=== PATIENT | female | born 1975 | race Caucasian/White ===

== ENCOUNTER 2018-10-10 12:30 | Emergency (ER) | payer OTHER ==
[~2018-10-10] VITALS: Ht 160 cm; Wt 96.6 kg
--- OUTSIDE RECORDS SUMMARY | 2018-10-10 13:55 | XMS REPORT | Clinical Summary ---
Author Author [facility] Organization [facility] Address Unknown Phone Unavailable Care Team Providers Care Rn Endocrinology Name Role Phone Christianne De MD PCP Allergies Comments Active Allergy Reactions Severity Noted Date Fexofenadine Rash Low 06/21/2016 Doxycycline 08/24/2015 Penicillins 08/24/2015 Medications End Date Status Medication Sig Dispensed Refills Start Date Active amitriptyline (ELAVIL) 50 75 mg. TAKE 1 1 07/28/201 MG tablet AND 1/2 6 TABLETS BY MOUTH EVERY EVENING Active topiramate (TOPAMAX) 100 07/24 TAKE 1 30 08/12/201 MG tablet TABLET BY 6 MOUTH EVERY DAY Active CYANOCOBALAMIN/COBAMAMIDE Place under 0 (B-12 PLUS SL) the tongue. Active ETODOLAC ORAL Take 100 mg 0 by mouth. Active acetaminophen-codeine Take 1 tablet 0 (TYLENOL WITH CODEINE #3) by mouth 300-30 mg per tablet every 4 (four) hours as needed for moderate pain. Active nabumetone (RELAFEN) 500 SI-2 TABS 120 tablet 0 201 MG tablet PO BID 8 10/11/2017 Discontinued meloxicam (MOBIC) 15 mg Take 1 tablet 30 tablet 1 tablet (15 mg total) 8 by mouth daily. Active Problems Problem Noted Date Biceps tendinitis on right 03/13/2018 Bursitis of right shoulder 03/13/2018 Leukocytosis 08/24/2015 Elevated blood pressure 08/24/2015 Allergic rhinitis 08/24/2015 Neck pain 08/24/2015 Headache 08/24/2015 Groin mass 08/24/2015 Encounters Care Team Description Date Type Specialty Manjit Marlow MD Biceps tendinitis on right (Primary Dx); Bursitis of right shoulder 03/13/2018 Office Visit Orthopedic Surgery Laith Levin MD Pain of left thumb (Primary Dx); Primary osteoarthritis of first carpometacarpal joint of left hand; OA (osteoarthritis) of finger, right 10/11/2017 Office Visit Orthopedic Surgery after 10/09/2017 Family History Medical History Relation Name Comments No Known Problems Father Heart disease Maternal Grandfather Hypertension Maternal Grandmother Cancer Mother Diabetes Mother Heart disease Paternal Grandfather No Known Problems Sister Relation Name Status Comments Father Maternal Grandfather stroke Maternal Grandmother Alive Mother lung cancer Paternal Grandfather Paternal Grandmother Sister Social History Date Tobacco Use Types Packs/Day Years Used Started: 08/24/1989 Current Some Day Smoker Cigarettes 0.25 Smokeless Tobacco: Never Used Tobacco Cessation: Ready to Quit: Yes; Counseling Given: No Alcohol Use Drinks/Week oz/Week Comments Yes 2 Cans of 1.2 beer Sex Assigned at Date Recorded Not on file Industry Job Start Date Occupation Not on file Not on file Not on file Travel End Travel History Travel Start No recent travel history available. Last Filed Vital Signs Time Taken Vital Sign Reading 10/11/2017 3:31 PM CDT Blood Pressure 119/87 10/11/2017 3:31 PM CDT Pulse 94 - Temperature - - Respiratory Rate - - Oxygen Saturation - - Inhaled Oxygen - Concentration 03/13/2018 2:42 PM CDT Weight 90.7 kg (200 lb) 03/13/2018 2:42 PM CDT Height 160 cm (5' 3") 03/13/2018 2:42 PM CDT Body Mass Index 35.43 Plan of Treatment Health Maintenance Due Date Last Done Comments CERVICAL CANCER SCREENING 11/23/2016 11/23/2013 INFLUENZA VACCINE 01/23/2019 Procedures Comments Procedure Name Priority Date/Time Associated Diagnosis XR SHOULDER 2+ VW RIGHT Routine 03/13/2018 Acute pain of right 2:53 PM CDT shoulder MO ARTHROCENTESIS Routine 03/13/2018 Biceps tendinitis on ASPIR&/INJ MAJOR JT/BURSA 2:30 PM CDT right W/US after 10/09/2017 Results * XR Shoulder 2+ Vw Right (03/13/2018 2:53 PM CDT) Narrative Performed At [facility] 3V of the right shoulder were obtained today in clinic and reviewed by me which demonstrate no evidence of fracture, dislocation or significant arthritis. Performing Organization Address City/State/Zipcode Phone Number [facility] [phone] [place] [address] * Large Joint Arthrocentesis (03/13/2018 2:30 PM CDT) Narrative Performed At Manjit Marlow MD 03/14/2018 11:17 AM Large Joint Arthrocentesis Consent given by: patient Site marked: site marked Timeout: Immediately prior to procedure a time out was called to verify the correct patient, procedure, equipment, computer customer support specialist and site/side marked as required Supporting Documentation Indications: pain Procedure Details Preparation: Patient was prepped and draped in the usual sterile fashion Ultrasound guided: yes Platelet Rich Plasma Used: no PRP Used Location: shoulder - R glenohumeral (bicipital tendon sheath) Right side: Right shoulder medications administered: 2 mL bupivacaine 0.25 % (2.5 mg/mL); 12 mg betamethasone acetate & sodium phosphate 6 mg/mL after 10/09/2017 Insurance Payer Benefit Subscriber ID Type Phone Address Plan / Group CIGNA CIGNA OPEN xxxxxxxxx O ACCESS/NET WORK Advance Directives Patient has advance care planning documents on file. For more information, beny steen contact: Reji Frost [address] [place] [address]
[2018-10-10 14:41] VITALS: BP 143/97
== END 2018-10-10 14:30 | disposition home or self-care (01) ==
LOC: ER 12:30
DX: L50.1 Idiopathic urticaria (principal)
CPT/HCPCS: 99282

== ENCOUNTER → 2018-11-14 | Outpatient (CLI) | payer OTHER | LOC: RAD 16:38 | PROVIDERS: ATTEND Internal Medicine | DX: M79.89 Other specified soft tissue disorders (principal) | CPT/HCPCS: 93971 ==

== ENCOUNTER → 2019-02-13 | Day surgery (SDC) | payer OTHER ==
[~2019-02-13] MED LIST: AMITRIPTYLINE H25 MG PO; ETODOLAC200 MG PO; FENTANYL CITRATE/PF 100MCG/2 ML INJ ONE; HYOSCYAMINE 0.125 MG TAB ONE; MIDAZOLAM HCL 2 MG/2 ML VIAL ONE; PLAQUENIL200 MG PO; PROPOFOL IV EMULSION 10 MG/ML 50 ML VIAL ONE; RANITIDINE HCL150 MG PO; TOPAMAX50 MG PO
--- OUTSIDE RECORDS SUMMARY | 2019-02-13 08:40 | XMS REPORT | Clinical Summary ---
Author Author [facility] Organization [facility] Address Unknown Phone Unavailable Care Team Providers Care Cheese Sprayer Name Role Phone Christianne De MD PCP [...] (RELAFEN) 500 SI-2 TABS 120 tablet 0 10/11/201 MG tablet PO BID 8 Active pantoprazole (PROTONIX) Take 40 mg by 0 40 MG EC tablet mouth daily. 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 Office Visit Hematology Deb Keith MA 11/25/2018 Telephone Hematology Yared Dye MD Leukocytosis, unspecified type (Primary Dx) 11/25/2018 Orders Only Hematology Deb Keith MA 11/22/2018 Telephone Hematology Manjit Marlow MD Biceps tendinitis on right (Primary Dx); Bursitis of right shoulder 03/13/2018 Office Visit Orthopedic Surgery after 02/12/2018 Family History Medical History Relation Name Comments [...] Ready to Quit: Yes; Counseling Given: No Drinks/Week oz/Week Comments Alcohol Use 2 Cans of beer 2.0 Yes Sex Assigned at Date Recorded Not on file Industry Job Start Date Occupation Not on file Not on file Not on file Travel End Travel History Travel Start No recent travel history available. Last Filed Vital Signs Reading Time Taken Comments Vital Sign 142/95 11/26/2018 10:07 AM CDT Blood Pressure 100 11/26/2018 10:07 AM CDT Pulse 37.3 C (99.1 F) 11/26/2018 10:07 AM CDT Temperature - - Respiratory Rate - - Oxygen Saturation - - Inhaled Oxygen Concentration 94.3 kg (208 lb) 11/26/2018 10:07 AM CDT Weight 160 cm (5' 3") 11/26/2018 10:07 AM CDT Height 36.85 11/26/2018 10:07 AM CDT Body Mass Index Plan of Treatment Health Maintenance Due Date Last Done Comments CERVICAL CANCER SCREENING 11/23/2016 11/23/2013 INFLUENZA VACCINE 01/23/2019 Procedures Comments Procedure Name Priority Date/Time Associated Diagnosis LDH Routine 11/26/2018 Leukocytosis, unspecified 9:57 AM CDT type FERRITIN LEVEL Routine 11/26/2018 Leukocytosis, unspecified 9:57 AM CDT type HC COMPLETE BLD COUNT Routine 11/26/2018 Leukocytosis, unspecified W/AUTO DIFF 9:57 AM CDT type XR SHOULDER 2+ VW RIGHT Routine 03/13/2018 Acute pain of right 2:53 PM CDT shoulder CO ARTHROCENTESIS Routine 03/13/2018 Biceps tendinitis on ASPIR&/INJ MAJOR JT/BURSA 2:30 PM CDT right W/US after 02/12/2018 Results * CBC with platelet and differential (11/26/2018 9:57 AM CDT) WBC 12.25 (H) 4.50 - 11.00 k/uL [facility] RBC 5.13 4.20 - 5.50 m/uL [facility] HGB 15.3 12.0 - 16.0 g/dL [facility] HCT 44.7 37.0 - 47.0 % [facility] MCV 87.1 82.0 - 100.0 fL [facility] MCH 29.8 27.0 - 34.0 pg [facility] MCHC 34.2 31.0 - 37.0 g/dL [facility] RDW - SD 45.1 37.0 - 55.0 fL [facility] MPV 8.9 8.8 - 13.2 fL [facility] Platelet count 341 150 - 400 k/uL [facility] Neutrophils 71.2 (H) 39.0 - 69.0 % [facility] Lymphocytes 17.3 (L) 25.0 - 45.0 % [facility] Monocytes 9.1 0.0 - 10.0 % [facility] Eosinophils 2.2 0.0 - 5.0 % [facility] Basophils 0.2 0.0 - 1.0 % [facility] Specimen Blood Performing Organization Address City/[facility]/Zipcode Phone Number [facility] DEPARTMENT [address] [address] PATHOLOGY AND GENOMIC MEDICINE [address] * LDH (11/26/2018 9:57 AM CDT) LDH 199 87 - 225 U/L [facility] Specimen Plasma specimen Performing Organization Address City/[facility]/Zipcode Phone Number [facility] DEPART[facility] [address] [address] PATHOLOGY AND GENOMIC MEDICINE [facility] [address] * Ferritin level (11/26/2018 9:57 AM CDT) Ferritin level 55 13 - 150 ng/mL [facility] Specimen Plasma specimen Performing Organization Address City/State/Zipcode Phone Number [facility] DEPARTMENT OF [address] [place] [address] PATHOLOGY AND GENOMIC MEDICINE [address] * XR Shoulder 2+ Vw Right (03/13/2018 2:53 PM CDT) Specimen Narrative Performed At [facility] 3V of the right shoulder were obtained today in clinic and reviewed by me which demonstrate no evidence of fracture, dislocation or significant arthritis. Performing Organization Address [facility] Phone Number [facility] [address] [place] [address] * Large Joint Arthrocentesis (03/13/2018 2:30 PM CDT) Narrative Performed At Manjit Marlow MD 03/14/2018 11:17 AM Large Joint Arthrocentesis Consent given by: patient Site marked: site marked Timeout: Immediately prior to procedure a time out was called to verify the correct patient, procedure, equipment, direct support staff member and site/side marked as required Supporting Documentation Indications: pain Procedure Details Preparation: Patient was prepped and draped in the usual sterile fashion Ultrasound guided: yes Platelet Rich Plasma Used: no PRP Used Location: shoulder - R glenohumeral (bicipital tendon sheath) Right side: Right shoulder medications administered: 2 mL bupivacaine 0.25 % (2.5 mg/mL); 12 mg betamethasone acetate & sodium phosphate 6 mg/mL after 02/12/2018 Insurance Type Payer Benefit Subscriber ID Effective Phone Address Plan / Dates Group O CIGNA CIGNA OPEN xxxxxxxxx 2015-P ACCESS/NET resent WORK Advance Directives For more information, please contact: [phone] Patient Soils Technician Explanation Type Date Recorded Advance Directives, 05/17/2016 3:46 PM Living Will and Medical Power of Rcp Advance Directives, 06/21/2016 7:01 PM Living Will and Medical Power of Rcp
[2019-02-13 10:40] VITALS: BP 152/93
--- NOTE | 2019-02-13 11:09 | Operative Report ---
DATE OF PROCEDURE: 02/13/2019 SURGEON: Jose Luis Sidhu MD PROCEDURES: EGD with biopsies and colonoscopy with polypectomy INDICATIONS FOR EGD: Upper abdominal pain and history of melena. INDICATIONS FOR COLONOSCOPY: Lower abdominal pain, diarrhea, history of bright red blood per rectum. MEDICATIONS: The patient was done under MAC, please see anesthesiologist's note. PROCEDURE IN DETAIL: With the patient in left lateral decubitus position, a flexible fiberoptic Olympus gastroscope was introduced into the esophagus under direct visualization without any difficulty. Some erosions were noted in the distal esophagus. A minute nodule was noted at the GE junction, that was biopsied. The scope was then advanced with ease into the stomach. Mucosa overlying the antrum and the body revealed some patchy intense erythema, [id number] edema, biopsies were obtained; and sent to stain for H. pylori. The pylorus was of normal contour and shape, it was intubated with ease and the scope was advanced all the way to the second portion of the duodenum. Biopsies were obtained from the second portion and duodenal bulb to rule out sprue. The scope was then withdrawn back into the stomach and retroflexed, and mucosa overlying the fundus and cardia appeared to be within normal limits. The scope was then straightened out. The stomach was decompressed. The scope was subsequently withdrawn. The patient tolerated the procedure well. IMPRESSION: 1. Erosions, repeat. 2. Erosive distal esophagitis. 3. Minute nodule, GE junction biopsied. 4. Gastritis, biopsied, biopsies sent to stain for H. pylori. 5. Rule out sprue. PLAN: Follow up histology. Initiate Protonix 40 mg one p.o. q.a.m. a.c. PROCEDURE IN DETAIL: The patient was then turned around after adequate lubrication of the anal canal, a flexible fiberoptic Olympus colonoscope was inserted into the rectum with ease and advanced all the way to the cecum. Mucosa overlying the cecum appeared to be within normal limits. The ileocecal valve was intubated. The scope was advanced into the terminal ileum. Biopsies were obtained. The scope was then withdrawn back into the colon, it was then withdrawn slowly and three polyps were removed per cold snare polypectomy from the ascending colon. Two polyps were snared by hot snare polypectomy from the transverse colon. There were some mild patchy inflammatory changes noted in the left colon and rectum. Multiple random biopsies were obtained. Twelve polyps were removed from the sigmoid colon, 5 per snare electrocautery and 7 by hot biopsy forceps. Five polyps were removed per snare electrocautery from the rectum. The scope was then retroflexed into the distal rectum and small internal hemorrhoids were noted, none of which was actively bleeding. The scope was then straightened out, it was subsequently withdrawn after securing an adequate stool specimen, that was sent for the appropriate stool studies. The patient tolerated the procedure well. IMPRESSION: 1. Ascending colon polyps x3, removed per cold sent snare polypectomy. 2. Transverse colon polyps x2, removed per hot snare polypectomy. 3. Mild patchy left-sided colitis. 4. Sigmoid colon polyps x12, 5 removed per snare electrocautery and 7 per hot biopsy forceps. 5. Rectal polyps x5, removed per snare electrocautery. 6. Internal hemorrhoids, none actively bleeding. PLAN: 1. Follow up histology. 2. Follow up stool studies. 3. Initiate Visbiome one p.o. b.i.d. 4. Bentyl 10 mg one p.o. t.i.d. 5. Check IBD panel, CRP, and sedimentation rate. A total of 22 polyps were removed. 6. The patient will need a followup colonoscopy in 6 months to a year. MD BRIANA Alvares/TAMI /[id number] cc: Corey Paul NP
[2019-02-13 13:13] LABS: C DIFFICILE TOXIN A&B AMP PROB NEGATIVE (NEGATIVE); WBC,FECAL (FECAL LACTOFERRIN) NEGATIVE (NEGATIVE)
== END | disposition home or self-care (01) ==
LOC: OR 08:38
PROVIDERS: ATTEND Internal Medicine Gastroenterology
DX: K29.70 Gastritis, unspecified, without bleeding (principal); D12.2 Benign neoplasm of ascending colon; D12.3 Benign neoplasm of transverse colon; D12.8 Benign neoplasm of rectum; K51.50 Left sided colitis without complications; K59.00 Constipation, unspecified; K22.10 Ulcer of esophagus without bleeding; K22.8 Other specified diseases of esophagus; K64.8 Other hemorrhoids; M54.9 Dorsalgia, unspecified; F17.203 Nicotine dependence unspecified, with withdrawal; G43.909 Migraine, unspecified, not intractable, without status migrainosus; K21.9 Gastro-esophageal reflux disease without esophagitis; Z88.1 Allergy status to other antibiotic agents; Z88.0 Allergy status to penicillin; Z91.048 Other nonmedicinal substance allergy status; Z01.810 Encounter for preprocedural cardiovascular examination
CPT/HCPCS: 36415; 43239; 45380; 45384; 45385; 81025; 83630; 83993; 85651; 86140; 86256; 86671; 87045; 87177; 87328; 87493; 93005; J2250; J2704; J3010; 45378

== ENCOUNTER 2019-03-03 07:47 | Emergency (ER) | payer OTHER ==
[~2019-03-03] VITALS: Ht 160 cm; Wt 95.3 kg
[~2019-03-03 07:47] MED LIST changes: -FENTANYL CITRATE/PF 100MCG/2 ML INJ ONE; -HYOSCYAMINE 0.125 MG TAB ONE; -MIDAZOLAM HCL 2 MG/2 ML VIAL ONE; -PROPOFOL IV EMULSION 10 MG/ML 50 ML VIAL ONE
--- OUTSIDE RECORDS SUMMARY | 2019-03-03 07:49 | XMS REPORT | Clinical Summary ---
Author Author [facility] Organization [facility] Address Unknown Phone Unavailable Care Team Providers Care Chlorinator Operator Name Role Phone Christianne De MD PCP [...] shoulder 03/13/2018 Office Visit Orthopedic Surgery after 03/02/2018 Family History Medical History Relation Name Comments [...] pain of right 2:53 PM CDT shoulder NE ARTHROCENTESIS Routine 03/13/2018 Biceps tendinitis on ASPIR&/INJ MAJOR JT/BURSA 2:30 PM CDT right W/US after 03/02/2018 Results * CBC with platelet and differential (11/26/2018 9:57 AM CDT) WBC 12.25 (H) 4.50 - 11.00 k/uL [facility] RBC 5.13 4.20 - 5.50 m/uL [facility] HGB 15.3 12.0 - 16.0 g/dL [facility] HCT 44.7 37.0 - 47.0 % [facility] MCV 87.1 82.0 - 100.0 fL [facility] MCH 29.8 27.0 - 34.0 pg [facility] MCHC 34.2 31.0 - 37.0 g/dL [facility] RDW - SD 45.1 37.0 - 55.0 fL [facility] MPV 8.9 8.8 - 13.2 fL [facility] Platelet count 341 150 - 400 k/uL [facility] Neutrophils 71.2 (H) 39.0 - 69.0 % [facility] Lymphocytes 17.3 (L) 25.0 - 45.0 % [facility] Monocytes 9.1 0.0 - 10.0 % [facility] Eosinophils 2.2 0.0 - 5.0 % [facility] Basophils 0.2 0.0 - 1.0 % [facility] Specimen Blood Performing Organization Address City/[facility]/Zipcode Phone Number [facility] DEPARTMENT [address] [address] PATHOLOGY AND GENOMIC MEDICINE [address] * LDH (11/26/2018 9:57 AM CDT) LDH 199 87 - 225 U/L [facility] Specimen Plasma specimen Performing Organization Address City/[facility]/Zipcode Phone Number [facility] DEPARTMENT [address] [address] PATHOLOGY AND GENOMIC MEDICINE [facility] [address] * Ferritin level (11/26/2018 9:57 AM CDT) Ferritin level 55 13 - 150 ng/mL [facility] Specimen Plasma specimen Performing Organization Address City/State/Zipcode Phone Number [facility] DEPARTMENT OF [address] [place] [address] PATHOLOGY AND GENOMIC MEDICINE [address] * XR Shoulder 2+ Vw Right (03/13/2018 2:53 PM CDT) Specimen Narrative Performed At [facility] 3V of the right shoulder were obtained today in clinic and reviewed by me which demonstrate no evidence of fracture, dislocation or significant arthritis. Performing Organization Address [facility] Phone Number [facility] [address] [place] [address] * Large Joint Arthrocentesis (03/13/2018 2:30 PM CDT) Narrative Performed At Manjit Marlow MD 03/14/2018 11:17 AM Large Joint Arthrocentesis Consent given by: patient Site marked: site marked Timeout: Immediately prior to procedure a time out was called to verify the correct patient, procedure, equipment, presidential support specialist and site/side marked as required [...] acetate & sodium phosphate 6 mg/mL after 03/02/2018 Insurance Type Payer Benefit Subscriber ID Effective Phone Address Plan / Dates Group O CIGNA CIGNA OPEN xxxxxxxxx 2015-P ACCESS/NET resent WORK Advance Directives For more information, please contact: [phone] Patient Political Consultant Explanation Type Date Recorded Advance Directives, 05/17/2016 3:46 PM Living Will and Medical Power of Dental Assistant Medical Assistant Advance Directives, 06/21/2016 7:01 PM Living Will and Medical Power of Dental Assistant Medical Assistant
[2019-03-03] MEDS ORDERED: KETOROLAC TROMETHAMINE 60 MG/2 ML VIAL IM ONE (09:00)
[2019-03-03] MEDS ORDERED: PROMETHAZINE HCL (IM) 25 MG/ML VIAL IM ONE (09:00)
--- NOTE | 2019-03-03 09:11 | Diagnostic Imaging Report ---
EXAM: CT Abdomen and Pelvis WITHOUT intravenous contrast INDICATION: Left flank pain COMPARISON: None. TECHNIQUE: Abdomen and pelvis were scanned utilizing a multidetector helical scanner from the lung base to the pubic symphysis without administration of IV contrast. Coronal and sagittal reformations were obtained. IV CONTRAST: None ORAL CONTRAST: None COMPLICATIONS: None RADIATION DOSE: Total DLP: 727.8 mGy*cm Dose modulation, iterative reconstruction, and/or weight based adjustment of the mA/kV was utilized to reduce the radiation dose to as low as reasonably achievable. FINDINGS: LOWER THORAX: Normal. HEPATOBILIARY: No focal hepatic lesions. The gallbladder appears unremarkable. SPLEEN: No splenomegaly. PANCREAS: No focal masses or ductal dilatation. ADRENALS: Left adrenal 2.8 cm nodule with macroscopic fat consistent with myelolipoma. KIDNEYS/URETERS: There is a 6 mm left upper pole renal calculus. Mild associated left hydronephrosis. No other renal calculi identified. No solid mass lesions. No right hydronephrosis. PELVIC ORGANS/BLADDER: Phleboliths in the pelvis. PERITONEUM / RETROPERITONEUM: No free air or fluid. LYMPH NODES: No lymphadenopathy. VESSELS: Minimal atherosclerotic calcifications at the aortic bifurcation. GI TRACT: No abnormal bowel wall thickening. No bowel obstruction. Normal appendix. BONES AND SOFT TISSUES: No suspicious lytic or blastic lesions. No acute osseous injury. IMPRESSION: 6 mm left upper pole renal calculus and mild left hydronephrosis. 2.8 cm left adrenal myelolipoma. Signed by: Parminder Padgett MD on 03/03/2019 9:08 AM
[2019-03-03 09:33] VITALS: BP 157/84
== END 2019-03-03 09:40 | disposition home or self-care (01) ==
LOC: FSED 07:47
DX: R10.12 Left upper quadrant pain (principal); R10.32 Left lower quadrant pain; R11.0 Nausea; N20.0 Calculus of kidney
CPT/HCPCS: 74176; 99283; J1885; J2550

== ENCOUNTER 2019-10-29 06:19 | Emergency (ER) | payer OTHER ==
[~2019-10-29] VITALS: Ht 160 cm; Wt 99.8 kg
[~2019-10-29 06:19] MED LIST changes: +DICYCLOMINE HCL10 MG PO; +MIRALAX17 GM PO; +PANTOPRAZOLE SO40 MG PO
[2019-10-29] MEDS ORDERED: KETOROLAC TROMETHAMINE 30 MG/ML VIAL IV STA (06:42)
[2019-10-29] MEDS ORDERED: MORPHINE SULFATE INJ 4 MG/ML INJ 1ML IV ONE (06:45)
--- NOTE | 2019-10-29 07:03 | NUR ---
TO ROOM TO CARLENE DSOUZA
--- NOTE | 2019-10-29 07:08 | NUR ---
PER ER MD BRADSHAW, DO NOT COVID TEST UNTIL AFTER CT DONE AND READ.
[2019-10-29] MEDS ORDERED: TESSALON PERLE100 MG PO (07:36)
[2019-10-29] MEDS ORDERED: AZITHROMYCIN250 MG PO (07:36)
--- NOTE | 2019-10-29 08:09 | NUR ---
COVID SWAB OBTAINED FOLLOWING COLLECTION PROTOCOL. PT DID NOT TOLERATE WELL. EXPLAINED PROCEDURE AND FOLLOW UP INFORMATION. PT STATES "IT BETTER BE NEGATIVE, I HAVE TO GO [employer] MY NEW CAR TODAY."
--- NOTE | 2019-10-29 08:10 | NUR ---
[facility] CALLED FOR TRANSPORT.
--- NOTE | 2019-10-29 08:37 | Diagnostic Imaging Report ---
TECHNIQUE: CT of the chest WITH intravenous contrast (pulmonary embolism protocol). Dose modulation, iterative reconstruction, and/or weight-based adjustment of the mA/kV was utilized to reduce the radiation dose to as low as reasonably achievable. INDICATION: 44-year-old woman with pain and shortness of breath. COMPARISON: Abdomen and pelvis CT 03/13/2019. FINDINGS: LINES/TUBES: None. PULMONARY ARTERIES: Proximal to the bifurcation of the main pulmonary artery, the main pulmonary artery is 2.6 cm in diameter. No filling defects within the pulmonary arteries to suggest pulmonary embolus. LUNGS AND AIRWAYS: Central airways are patent. 3 mm noncalcified nodule in the superior segment of the right lower lobe (axial lung window series image 35). Mild dependent atelectasis in both lower lobes. PLEURA: Trace right pleural effusion. HEART AND MEDIASTINUM: The visualized thyroid gland is normal. No significant mediastinal, hilar, or axillary lymphadenopathy. The heart and pericardium are within normal limits. SOFT TISSUES AND BONES: Unremarkable. UPPER ABDOMEN: No significant change in size of the 2.6 x 2.6 cm benign left adrenal adenoma. Otherwise, unremarkable. IMPRESSION: No pulmonary embolus or other acute abnormalities in the chest. 3 mm pulmonary nodule in the right lower lobe. If patient is at high risk for lung neoplasm, then optional follow-up chest CT may be obtained in 12 months for reassessment. Otherwise, no routine follow-up imaging recommended. Signed by: Chata Melo MD on 10/29/2019 8:33 AM
[2019-10-29] MEDS ORDERED: ULTRAM50 MG PO (08:59)
[2019-10-29] MEDS ORDERED: NAPROSYN500 MG PO (08:59)
[2019-10-29] MEDS ORDERED: SODIUM CHLORIDE 0.9% 50ML 50 ML ONE (11:18)
[2019-10-29] MEDS ORDERED: IOPAMIDOL 370 MG/ML 200 ML INFUS..BTL INJ ONE (11:18)
== END 2019-10-29 09:47 | disposition home or self-care (01) ==
LOC: FSED 06:19
DX: R05 Cough (principal); J20.9 Acute bronchitis, unspecified; F17.210 Nicotine dependence, cigarettes, uncomplicated
CPT/HCPCS: 71260; 80053; 81025; 85025; 87635; 94760; 99284; Q9967

== ENCOUNTER 2020-03-05 19:31 | Inpatient (IN) | payer OTHER ==
[~2020-03-05] VITALS: Ht 160 cm; Wt 100.7 kg
[~2020-03-05 19:31] MED LIST changes: +AZITHROMYCIN250 MG PO; +NAPROSYN500 MG PO; +TESSALON PERLE100 MG PO; +ULTRAM50 MG PO
[2020-03-05] MEDS ORDERED: FAMOTIDINE 20 MG/2 ML VIAL IV STA (20:06)
[2020-03-05] MEDS ORDERED: KETOROLAC TROMETHAMINE 30 MG/ML VIAL IV STA (20:06)
[2020-03-05] MEDS ORDERED: ONDANSETRON HCL INJ 2MG/ML 2ML 2 MG/ML VIAL IV STA ×2 (20:06→22:05)
--- NOTE | 2020-03-05 20:17 | Emergency Department Note ---
History of Present Illnes History of Present Illness Chief Complaint: Flank Pain History of Present Illness This is a 44 year old female with history of IBS, Nephrolithiasis, HTN , migraines, dermatomyositis and chronic alcohol abuse, who presents with onset of nausea x 2 days, vomiting x 4 today, diarrhea x 3 without blood or mucous and the onset of left flank pain that started 6 hours ago. Pt is having generalized abdominal pain that is in the location of her IBS symptoms, but seems more severe. The abdominal pain is crampy. The flank pain is sharp and stabbing, and does not radiate. She has had some urgency, but no dysuria, fever or chills. 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: No Onset (how long ago): day(s) (2) Location: left flank Quality: sharp, stabbing Severity: severe Onset quality: sudden Duration (how long): hour(s) (5.5) Timing of current episode: constant Progression: worsening Context: Denies recent surgery, Denies trauma/injury Relieving factors: none Exacerbating factors: none Associated symptoms: Reports nausea/vomiting; Denies chest pain, Denies cough, Denies fever/chills, Denies loss of appetite, Denies rash, Denies shortness of breath Treatments prior to arrival: none Risk factors: Prevoius kidney stone in 02/2019; Past Medical/Family History Physician Review I have reviewed the patient's past medical and family history. Any updates have been documented here. Past Medical History Recent Fever: No Clinical Suspicion of Infectio: No New/Unexplained Change in Ment: No Past Medical History: Kidney Stones, Chronic Back Pain Other Medical History: DERMATOMYOSITIS,KIDNEY STONES, LEUKOCYTOSIS, MULT. LYPOMACYSTIS, BULGING BACK DISCS, MIGRAINES Past Surgical History: T&A, Tubal Ligation, Other Surgery: EAR TUBES, LYPOMA TUBAL LIGATION Social History Smoking Cessation: Current every day smoker Counseling Performed: Yes Alcohol Use: Daily Any Illegal Drug Use: No TB Exposure/Symptoms: No Physically hurt or threatened: No Family History Family history of heart diseas: No Other Last Tetanus: UTD Any Pre-Existing Lines (PICC,: No Is patient up to date on immun: Yes Physical Exam Related Data Allergies: Coded Allergies: Penicillins (Verified Allergy, Unknown, very sick, 02/04/19) doxycycline (Verified Allergy, Unknown, severe yeast infection, 02/04/19) ibuprofen (Verified Adverse Reaction, Unknown, SKIN TURNS RED, 03/05/20) Uncoded Allergies: lysol (Allergy, Severe, vocal cord disfunction, 02/04/19) Triage Vital Signs Vital Signs Date Time Temp Pulse Resp B/P (MAP) Pulse Ox O2 Delivery O2 Flow Rate FiO2 03/05/20 19:37 97.5 103 18 172/99 99 Room Air Vital signs reviewed: Yes Physical Exam CONSTITUTIONAL Constitutional: Present well-developed, Present well-nourished, Present obese, Present ill appearing (appears not to feel well;); Absent distressed HENT HENT: Present normocephalic, Present atraumatic, Present oropharynx clear/moist, Present nose normal HENT L/R: Present left ext ear normal, Present right ext ear normal EYES Eyes: Reports PERRL, Reports conjunctivae normal, Reports EOM normal NECK Neck: Present ROM normal, Present supple; Absent cervical adenopathy PULMONARY Pulmonary: Present effort normal, Present breath sounds normal CARDIOVASCULAR Cardiovascular: Present regular rhythm, Present heart sounds normal, Present capillary refill normal, Present normal rate; Absent murmur GASTROINTESTINAL Abdominal: Present soft, Present bowel sounds normal, Present tender (diffuse abdominal ttp, with increased ttp of left upper abdomen and flank, no palpable mass), Present left CVA tenderness; Absent distension, Absent guarding, Absent mass, Absent rebound GENITOURINARY Genitourinary: Present exam deferred SKIN Skin: Present warm, Present dry; Absent rash MUSCULOSKELETAL Musculoskeletal: Present ROM normal NEUROLOGICAL Neurological: Present alert, Present oriented x 3 PSYCHOLOGICAL Psychological: Present mood/affect normal, Present judgement normal Results Laboratory Lab results reviewed: Yes Laboratory comments UA - nl except for warren small, ket - trace, blood - moderate, pro - 30 mg/dl; [place] - gluc = 121, K+ - 3.2, ALT = 61, AST = 60; Cardiacs - nl except for kayleigh = 114; CBC - WBC = 19k, H/H = 15.6/44.5, plt = 316, 84P ,8L; Imaging Imaging results reviewed: Yes Impressions [facility] [address] [address] Patient Name: KHADRA BEST MR #: [id number] : 1975 Age/Sex: 44/F Req #: [id number] Adm Physician: Ordered by: GHANSHYAM CAST MD Report #: [id number] Location: [facility] Room/Bed: Procedure: [id number] HOPD/CT ABD/PEL WITH CONTRAST-HOPD Exam Date: 03/05/20 Exam Time: 2114 REPORT STATUS: Signed EXAM: CT Abdomen and Pelvis WITH contrast INDICATION: General abdominal pain, left flank pain COMPARISON: None. TECHNIQUE: Abdomen and pelvis were scanned utilizing a multidetector helical scanner from the lung base to the pubic symphysis after administration of IV contrast. Coronal and sagittal reformations were obtained. Routine protocol was performed. Scan was performed when during portal venous phase. IV CONTRAST: 100 mL of Isovue 370 ORAL CONTRAST: None COMPLICATIONS: None RADIATION DOSE: Total DLP: 777.58 mGy*cm Estimated effective dose: (DLP x 0.015 x size factor) mSv CTDIvol has been reviewed. It is below the limits set by the Radiation Protocol Committee (RPC). Dose modulation, iterative reconstruction, and/or weight based adjustment of the mA/kV was utilized to reduce the radiation dose to as low as reasonably achievable. FINDINGS: LINES and TUBES: None. LOWER THORAX: Unremarkable HEPATOBILIARY: The liver is enlarged and diffusely hypodense compared to the spleen, consistent with diffuse hepatic diffuse hepatic steatosis. No focal hepatic lesions. No biliary ductal dilation. GALLBLADDER: No radio-opaque stones or sludge. No wall thickening. SPLEEN: No splenomegaly. PANCREAS: No focal masses or ductal dilatation. 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 The right adrenal gland is normal. KIDNEYS/URETERS: 7 mm obstructive stone in the left proximal ureter with hydronephrosis. There is left perinephric fat stranding and delayed nephrogram. Kidneys enhance symmetrically. No hydronephrosis. No cystic or solid mass lesions. GI TRACT: No abnormal distention, wall thickening, or evidence of bowel obstruction. Appendix is normal. PELVIC ORGANS/BLADDER: Unremarkable. LYMPH NODES: No lymphadenopathy. VESSELS: Scattered mild arterial vascular calcifications. PERITONEUM / RETROPERITONEUM: No free air or fluid. BONES: Unremarkable. SOFT TISSUES: Unremarkable. IMPRESSION: 1. A 7 mm obstructive stone in the left proximal ureter with mild hydronephrosis. Left perinephric fat stranding is suggestive of associated forniceal rupture. 2. Enlarged and steatotic liver. Signed by: Nazanin Tamayo MD on 03/05/2020 10:19 PM Dictated By: NAZANIN TAMAYO MD 18 Transcribed By: SHANNAN on 03/05/202218 COPY TO: GHANSHYAM CAST MD~ Diagnostics Tests Diagnostic test(s) reviewed: Yes Procedures 12 Lead ECG Interpretation ECG Interpretation : ECG: ECG 1 Food Science Professor: Interpreted by ED physician Date: Mar 05, 2020 Time: 20:13 Prior ECG tracings: not available for review Rhythm: sinus rhythm (with sinus arrhythmia) Rate: normal BPM: 82 QRS axis: normal ST segments normal: Yes T waves normal: Yes Clinical Impression: abnormal ECG Assessment & Plan Medical Decision Making MDM - Discussed with patient results of CT abd/pelvis and labs. Due to the fact that she has an obstructing stone, severe pain with vomiting, along with probable forniceal rupture, pt to be admitted to [facility], which she is agreeable to. 22:35 - case discussed with Dr. Albert Beaver, who was agreeable to consult on patient. Pt will be NPO, for possible OR tomorrow. Pt given Cipro IV, due to obstructive stone. Pt with "allergy" to PCN, which apparently causes facial redness or swelling. 23:15 - case discussed with Dr. Manuel Orozco,who is agreeable to admission. Pt to be placed in Observation. Plan for IVF, Banana Bag, with Librium, prn, possible alcohol withdrawal symptoms. Assessment & Plan Final Impression: (1) Nephropathy, obstructive (2) Left nephrolithiasis (3) Leukocytosis (4) Hypokalemia (5) Hypertension (6) Flank pain, acute (7) Alcohol abuse (8) Abnormal liver enzymes (9) IBS (irritable bowel syndrome) (10) Nausea and vomiting Depart Disposition: ADMITTED ([facility]) Last Vital Signs Date Time Temp Pulse Resp B/P (MAP) Pulse Ox O2 Delivery O2 Flow Rate FiO2 03/05/20 19:37 97.5 103 18 172/99 99 Room Air Home Meds Active Scripts Tramadol Hcl (ULTRAM) 50 Mg Tablet, 50 MG PO QID PRN for pain for 4 Days, #12 TAB Prov:GUSTABO BRADSHAW MD 10/29/19 Naproxen (NAPROSYN) 500 Mg Tablet, 500 MG PO BID for 7 Days, #15 TAB Prov:GUSTABO BRADSHAW MD 10/29/19 Benzonatate (TESSALON PERLE) 100 Mg Capsule, 1 TAB PO TID PRN for cough for 15 Days Prov:GUSTABO BRADSHAW MD 10/29/19 Azithromycin (Z-RUI) 250 Mg Tablet, 250 MG PO UD, #1 UDPKT Z-Pack Prov:GUSTABO BRADSHAW MD 10/29/19 Reported Medications Polyethylene Glycol 3350 (MIRALAX) 17 Gm Powd.pack, 1 PACKET PO DAILY 06/19/19 Dicyclomine Hcl (DICYCLOMINE HCL) 10 Mg Capsule, 10 MG PO TID 06/19/19 Pantoprazole Sodium* (PROTONIX) 40 Mg Tablet.dr, 40 MG PO DAILY, TAB 06/19/19 Hydroxychloroquine Sulfate (PLAQUENIL) 200 Mg Tab, 200 MG PO DAILY, #30 TAB 02/04/19 Amitriptyline Hcl (AMITRIPTYLINE HCL) 25 Mg Tablet, 75 MG PO HS, #30 TAB 02/04/19 Topiramate (TOPAMAX) 50 Mg Tablet, 100 MG PO DAILY 02/04/19 Medications in the ED Sodium Chloride 1,000 ml @ 0 mls/hr Q0M IV ; Start 03/05/20 at 20:15; Stop 04/04/20 at 20:14; Status UNV Ondansetron HCl 4 mg NOW STAT IV ; Start 03/05/20 at 20:06; Stop 03/05/20 at 20:07; Status UNV Famotidine 20 mg NOW STAT IV ; Start 03/05/20 at 20:06; Stop 03/05/20 at 20:07; Status UNV Ketorolac Tromethamine 30 mg ONCE STAT IV ; Start 03/05/20 at 20:06; Stop 03/05/20 at 20:07; Status UNV GHANSHYAM CAST MD Mar 05, 2020 20:17
--- OUTSIDE RECORDS SUMMARY | 2020-03-05 20:48 | XMS REPORT | Continuity of Care Document ---
Author Author [facility] t Organization [facility] Address [address] [place] [address] Phone Unavailable Care Team Providers Care Mason Liner Name Role Phone NONSTAFF PCP Unavailable Jeannie PHELAN, Sheldon Gay Attphys Bishop BRADSHAW Attphys Unavailable Tisha MORA Attphys Unavailable Payers Payer Name Policy Type Policy Number Effective Date Expiration Date S navneet CIGNACIGNA OPEN ACCESS/NETWORKxxxxxxxxx2015-PresentO xxxxxxxxx 2015 00:00:00 Reji Frost Cigna Hmo NA 2015 00:00:00 [facility] Problems Condition Name Condition Details Condition Category Status Onset Date Resolution Date Last Treatment Date Treating Clinician Comments Source Biceps tendinitis on right Biceps tendinitis on right Disease Active 2018-03-13 00:00:[address] Bursitis of right shoulder Bursitis of right shoulder Disease Active 2018-03-13 00:00:[address] Leukocytosis Leukocytosis Disease Active 2015-08-24 00:00:00 Reji Frost Elevated blood pressure Elevated blood pressure Disease Active 2015-08-24 00:00:[address] Allergic rhinitis Allergic rhinitis Disease Active 2015-08-24 00:00:00 Reji Frost Neck pain Neck pain Disease Active 2015-08-24 00:00:00 Reji Frost Headache Headache Disease Active 2015-08-24 00:00:00 Reji Frost Groin mass Groin mass Disease Active 2015-08-24 00:00:00 Reji Frost Problem Condition Active [facility] Allergies, Adverse Reactions, Alerts Allergy Name Allergy Type Status Severity Reaction(s) Onset Date Inacti ve Date Treating Clinician Comments Source Ibuprofen Propensity to adverse reactions to drug Active Palpitations 2019-10-10 00:00:00 Reji Meth odist Doxycycline Allergy to substance Active severe yeast i nfection 2019-02-04 00:00:00 [facility] lysol Allergy to substance Active Severe vocal cord disf unction 2019-02-04 00:00:00 [facility] Penicillin Allergy to substance Active very sick 2019-02-04 00:00: 00 [facility] Lysolecithin Propensity to adverse reactions to drug Active Anaphylaxis 2019-02-04 00:00:00 Reji Meth odist Penicillin Propensity to adverse reactions to drug Active Hives 2019-02-04 00:00:00 Reji dockery Fexofenadine Propensity to adverse reactions to drug Active Rash 2016-06-21 00:00:00 Reji dockery Doxycycline Propensity to adverse reactions to drug Active Unknown Reaction 2015-08-24 00:00:00 Reji sanchez Penicillins Propensity to adverse reactions to drug Active 2015-08-24 00:00:00 Reji dockery Family History Family Member Diagnosis Comments Start Date Stop Date Source Natural father No Known Problems Sebastian Frost Maternal grandfather Heart disease H ike Frost Maternal grandmother Hypertension Ho angely Frost Natural mother Cancer [facility] Natural mother Diabetes [facility] Paternal grandfather Heart disease H ike Frost Natural sister No Known Problems Sebastian Frost Social History Social Habit Start Date Stop Date Quantity Comments Source History of tobacco use 1989-08-24 00:00:00 Current some da y smoker Reji Frost Sex Assigned At Sebastian Frost Cigarettes smoked current (pack per day) - Reported 00:00:00 2019-12-12 00:00:00 Reji Frost Alcohol intake 2019-12-12 00:00:00 2019-12-12 00:00:00 Current drinker of alcohol (finding) Reji Frost Smoking Status Start Date Stop Date Source Current some day smoker 2019-12-12 00:00:00 Jono Frost Medications Ordered Medication Name Filled Medication Name Start Date Stop Da te Current Medication? Ordering Clinician Indication Dosage Frequency Signature (SIG) Comments Components Source amitriptyline (ELAVIL) 75 MG tablet 2019-12-12 09:57:13 Yes QD Take by mouth nightly. Reji Frost montelukast (SINGULAIR) 10 mg tablet 2019-12-12 09:57:13 Ye s 10mg QD Take 10 mg by mouth nightly. Reji brock furosemide (LASIX) 20 mg tablet 2019-12-12 09:57:13 Yes 20mg Q.5D Take 20 mg by mouth 2 (two) times a day. Jono Frost lisinopriL (PRINIVIL) 2.5 mg tablet 2019-12-12 09:57:13 Yes 2.5mg QD Take 2.5 mg by mouth daily. Reji Molina odmary hydroxychloroquine (Plaquenil) 200 mg tablet 2019-12-12 09:57:12 Yes Daily Reji dockery hydroxychloroquine (Plaquenil) 200 mg tablet 2019-12-08 15:52:34 Yes Daily Reji dockery Naproxen (Naprosyn) 500 Mg TABLET Naproxen (Naprosyn) 500 Mg TABLET 2019-10-29 08:59:00 Yes 500 Twice A Day [facility] Tramadol Hcl (Ultram) 50 Mg TABLET Tramadol Hcl (Ultram) 50 Mg TABLET 2019-10-29 08:59:00 Yes 50 Four Times Daily as needed fo r Pain [facility] Azithromycin (Z-Quoc) 250 Mg TABLET Azithromycin (Z-Quoc) 250 Mg TABLET 2019-10-29 07:36:00 Yes 250 Use As Directed [facility] Benzonatate (Tessalon Perle) 100 Mg CAPSULE Benzonatat e (Tessalon Perle) 100 Mg CAPSULE 2019-10-29 07:36:00 Yes 1 Thre e Times A Day as needed for Cough [facility] pantoprazole (PROTONIX) 40 MG EC tablet 10:28:27 2019-10-10 00:00:00 No 40mg QD Take 40 mg by mouth daily. Reji Frost ETODOLAC ORAL 2019-10-10 10:28:10 2019-10-10 00:00:00 No 100mg Take 100 mg by mouth. Reji Frost CYANOCOBALAMIN/COBAMAMIDE (B-12 PLUS SL) 2019-09 10:2019-10-10 00:00:[address] under the tongue. Reji Frost acetaminophen-codeine (TYLENOL WITH CODEINE #3) 300-30 mg pe r tablet 2019-10-10 10:2019-10-10 00:00:00 No 1{tbl} Q4H Take 1 tablet by mouth every 4 (four) hours as needed for moderate pain. Reji Frost nabumetone (RELAFEN) 500 MG tablet 2017-10-11 00:00:00 202 00:00:00 No SI-2 TABS PO BID [facility] topiramate (TOPAMAX) 100 MG tablet 2015-08-12 00:00:00 Yes 07/24 TAKE 1 TABLET BY MOUTH EVERY DAY [facility] Jesse odist amitriptyline (ELAVIL) 50 MG tablet 2015-07-28 00:00:0 0 2019-10-10 00:00:00 No 75mg 75 mg. TAKE 1 AND 1/2 TABLETS BY MOUTH E VERY EVENING Reji Frost Amitriptyline Hcl Amitriptyline Hcl Yes 75 Bedt jass [facility] Dicyclomine Hcl Dicyclomine Hcl Yes 10 Three Ti mes A Day [facility] Hydroxychloroquine Sulfate (Plaquenil) 200 Mg TAB Hydr oxychloroquine Sulfate (Plaquenil) 200 Mg TAB Yes 200 Daily [facility] Pantoprazole Sodium (Protonix) 40 Mg TABLET. Pantopr azole Sodium (Protonix) 40 Mg TABLET. Yes 40 Daily [facility] Polyethylene Glycol 3350 (Miralax) 17 Gm POWD.PACK Omer yethylene Glycol 3350 (Miralax) 17 Gm POWD.PACK Yes 1 Daily [facility] Topiramate (Topamax) 50 Mg TABLET Topiramate (Topamax) 50 Mg TABLET Yes 100 Daily [facility] Etodolac Etodolac 2019-06-19 00:00:00 No 100 Daily [facility] Ranitidine Hcl Ranitidine Hcl 2019-06-19 00:00:00 No 1 Daily [facility] Vital Signs Vital Name Observation Time Observation Value Comments Source Systolic blood pressure 2019-12-12 09:52:00 135 mm[Hg] Reji Frost Diastolic blood pressure 2019-12-12 09:52:00 90 mm[Hg] Reji Frost Heart rate 2019-12-12 09:52:00 105 /min Reji Frost Body height 2019-12-12 09:52:00 160 cm eRji Frost Body weight 2019-12-12 09:52:00 99.428 kg Reji Frost BMI 2019-12-12 09:52:00 38.83 kg/m2 Reji Frost Weight 2019-10-29 06:25:00 220 [lb_av] [facility] BMI (Body Mass Index) 2019-10-29 06:25:00 39.0 kg/m2 [facility] Body Temperature 2019-06-23 07:40:00 98.9 [degF] [facility] Procedures Procedure Date / Time Performed Performing Clinician Sour e US PELVIS COMPLETE (AMB IN-CLINIC ONLY) 2019-12-12 09:33:52 Victor [facility] THINPREP TIS PAP REFLEX HPV MRNA E6/E7 2019-12-08 16:10:00 Victor Hugo Hilliard COLONOSCOPY W/LESION REMOVAL 2019-06-23 00:00:00 [facility] COLONOSCOPY W/LESION REMOVAL 2019-06-23 00:00:00 [facility] EGD BIOPSY SINGLE/MULTIPLE 2019-02-13 00:00:00 C [facility] COLONOSCOPY AND BIOPSY 2019-02-13 00:00:00 [facility] Mariely [facility] COLONOSCOPY W/LESION REMOVAL 2019-02-13 00:00:00 [facility] COLONOSCOPY W/LESION REMOVAL 2019-02-13 00:00:00 [facility] Plan of Care Planned Activity Planned Date Details Comments Source Future Scheduled Test 2022-12-07 00:00:00 Screening for alyssa gnant neoplasm of cervix (procedure) [code = 139471679] Reji dockery Future Scheduled Test 2020-03-25 00:00:00 INFLUENZA VACCINE [code = INFLUENZA VACCINE] Reji Frost Instructions Bronchitis (Acute) - Adult C [facility] Encounters Start Date/Time End Date/Time Encounter Type Admission Type [facility] Care Department Encounter ID Source 2019-12-12 00:00:00 2019-12-12 00:00:00 Outpatient VICTOR HUGO VYAS [facility] [id number] [facility] 2019-12-12 00:00:00 2019-12-12 00:00:00 Outpatient VICTOR HUGO VYAS [facility] [id number] [facility] 2019-12-08 00:00:00 2019-12-08 00:00:00 Outpatient VICTOR HUGO VYAS [facility] [id number] [facility] 2019-10-29 06:19:00 2019-10-29 09:47:00 Departed Emergency Room 1 GUSTABO BRADSHAW [facility] [id number] JUDI Watson [facility] 2019-10-10 00:00:00 2019-10-10 00:00:00 Outpatient VICTOR HUGO VYAS [facility] [id number] [facility] 2019-06-23 05:50:00 2019-06-23 05:50:00 Registered [facility] Day [facility] [id number] [facility] 2019-03-03 07:47:00 2019-03-03 09:40:00 Departed Emergency Room 1 RAMESH MORA [facility] [id number] [facility] 2019-02-13 08:38:00 2019-02-13 08:38:00 Registered Surgical Day Care [facility] [id number] [facility] 2018-11-14 16:38:00 2018-11-14 16:38:00 Registered Clinic [facility] [id number] [facility] 2018-10-10 12:30:00 2018-10-10 14:30:00 Departed Emergency Room [facility] [id number] [facility] Results Test Description Test Time Test Comments Results Result Comments Source US Pelvis Complete (AMB In-Clinic ONLY) 2019-12-15 14:48:06 PELVIC ULTRASOUND Uterus: 8.2 X 4.1 X 4.2CMEndometrium: 2.2CM Right Ovary: 5.1 X 2.0 X 2.6CMCyst: YES, MULTIPLE CYSTIC STRUCTURES SEEN LARGEST MEASURES: 2.0 X 2.0 X 1.8CM Left Ovary: 2.7 X 1.5 X 2.1CMCyst: NO, MULTIPLE FOLLICLES Right Adnexa: WNLLeft Adnexa: WNL LG [place] [facility] THINPREP TIS PAP REFLEX HPV mRNA E6/E7 2019-12-11 13:49:00 Test Item Clinical information (test code = 61588-9) None given Date of last menstrual period (test code = 8665-2) 20191208 Prev. pap: (test code = 84102-7) NONE GIVEN Prev. bx: (test code = 41112-4) NONE GIVEN Source (test code = 39069-7) Endocervix Statement of adequacy (test code = 31900-2) Satisfactory for evaluation.Endocervical/transformation zone componentpresent. Interpretation/result: (test code = 45205-2) Negative for intraepithelial lesion or malignancy. Comment (test code = 58798-0) This Pap test has been evaluated with computerassisted technology. Chemist (test code = 92408-2) JOE OCONNOR (ASCP)CT screening location: [address], [place] [address] Comment (test code = 0693241) EXPLANATORY NOTE: The Pap is a screening test for cervical cancer. It is not a diagnostic test and is subject to false negative and false positive results. It is most reliable when a satisfactory sa mple, regularly obtained, is submitted with relevant clinical findings and history, and when the Pap result is evaluated along with historic and current clinical information. TREY (test code = RAC) Performing Organization Info rmation: Site ID: RGA Name: [facility] Address: [address] [place] [id number] Director: Carlos Mendoza MethodmaryFluoroscopic procedure less than one hour [id number] 09:30:00* Test Item Value Reference Range Interpretation Comments Coronavirus (PCR) (test code = Coronavirus (PCR)) NOT DETECTED NOTD ETECTED SARS-COV2/RT-PCRNegative results do not preclude SARS-CoV-2 infection and should not be used as the sole basis for patient management decisions. Negative results must be combined with clinical observations, patient history, and epidemiologi melissa information. A false negative result may occur if a specimen is improperly c ollected, transported or handled.The limit of detection for this assay is 250 co pies/mLThe SARS-CoV-2 test is a rapid, real-time RT-PCR test intended for the qu alitative detection of nucleic acid from SARS-CoV-2 in nasopharyngeal swab speci men collected from individuals suspected of COVID-19 by their healthcare provide r. This test has not been Food and Drug Administration (FDA) cleared or approved and has been authorized by FDA under an Emergency Use Authorization (EUA). This EUA will be effective until the declaration that circumstances exist justifying the authorization of the emergency use of in vitro diagnostic test for detection and or diagnosis of COVID-19 is terminated under section 564(b) of the Act, or the the EUA is revoked under 564(g) of the ACT.Testing performed by [address] WITH [id number]-[id number] 08:20:00 [facility] [address] [place] [address] Patient Name: KHADRA BEST MR #: [id number] : Age/Sex: 44/F Req #: [id number] Adm Physician: Ordered by: NATASHA RAYA MD Report #: [id number] Location: [facility] Room/Bed: Procedure: 8810-3408 H OPD/CT CHEST WITH CONTRAST-HOPD Exam Date: 10/29/19 Exam Time: 0734 REPORT STATUS: Sign ed TECHNIQUE: CT of the chest WITH intravenous contrast (pulmonary embolism protocol). Dose modulation, iterative reconstruction, and/or weight-based adj ustment of the mA/kV was utilized to reduce the radiation dose to as low as re asonably achievable. INDICATION: 44-year-old woman with pain and shortness of breath. COMPARISON: Abdomen and pelvis CT 03/13/2019. FINDINGS: LINES/TUBES: None. PULMONARY ARTERIES: Proximal to the bifurcation of the main pulmonary artery, the main pulmonary artery is 2.6 cm in diameter. N o filling defects within the pulmonary arteries to suggest pulmonary embolus. LUNGS AND AIRWAYS: Central airways are patent. 3 mm noncalcified nodule in the superior segment of the right lower lobe (axial lung window series image 3 5). Mild dependent atelectasis in both lower lobes. PLEURA: Trace right p leural effusion. HEART AND MEDIASTINUM: The visualized thyroid gland is nor mal. No significant mediastinal, hilar, or axillary lymphadenopathy. The heart and pericardium are within normal limits. SOFT TISSUES AND BONES: Unrema rkable. UPPER ABDOMEN: No significant change in size of the 2.6 x 2.6 cm be nign left adrenal adenoma. Otherwise, unremarkable. IMPRESSION: No p ulmonary embolus or other acute abnormalities in the chest. 3 mm pulmonary nodule in the right lower lobe. If patient is at high risk for lung neoplasm, then optional follow-up chest CT may be obtained in 12 months for reassessment . Otherwise, no routine follow-up imaging recommended. Signed by: Tiffanie mcqueen MD on 10/29/2019 8:33 AM Dictated By: TIFFANIE KENYON MD Electronica lly Signed By: TIFFANIE KENYON MD on 10/29/19832 Transcribed By: SHANNAN on 832 COPY TO: NATASHA RAYA MD Urine human chorionic gonadotropin (hCG) [id number] 06:30:00* Test Item Value Reference Range Interpretation Comments Urine Test (test code = 2106-3) NEGATIVE NEGATIVE [facility] WO [id number] 08:59:00 [facility] [address] [place] [address] Patient Name: KHADRA BEST MR #: [id number] : 1975 Age/Sex: 43/F Req #: [id number] Adm Physician: Ordered by: RAMESH MORA MD Report #: [id number] Location: [facility] Room/Bed: Procedure: HOPD/CT ABD/PEL WO CONTRAST-HOPD Exam Date: 03/03/19 Exam Time: 0850 REPORT STAT US: Signed EXAM: CT Abdomen and Pelvis WITHOUT intravenous contrast IN DICATION: Left flank pain COMPARISON: None. TECHNIQUE: Abdomen and pel vis were scanned utilizing a multidetector helical scanner from the lung base to the pubic symphysis without administration of IV contrast. Coronal and sagi ttal reformations were obtained. IV CONTRAST: None ORAL CONTRAST: N one COMPLICATIONS: None RADIATION DOSE: Total DLP: 727. 8 mGy*cm Dose modulation, iterative reconstruction, and/or weight based adj ustment of the mA/kV was utilized to reduce the radiation dose to as low as re asonably achievable. FINDINGS: LOWER THORAX: Normal. HEPATOBILIAR Y: No focal hepatic lesions. The gallbladder appears unremarkable. SPLEEN: No splenomegaly. PANCREAS: No focal masses or ductal dilatation. ADREN ALS: Left adrenal 2.8 cm nodule with macroscopic fat consistent with myelolipo ma. KIDNEYS/URETERS: There is a 6 mm left upper pole renal calculus. Mild as sociated left hydronephrosis. No other renal calculi identified. No solid mass lesions. No right hydronephrosis. PELVIC ORGANS/BLADDER: Phleboliths in the p vanessa. PERITONEUM / RETROPERITONEUM: No free air or fluid. LYMPH NODES: N o lymphadenopathy. VESSELS: Minimal atherosclerotic calcifications at the aort ic bifurcation. GI TRACT: No abnormal bowel wall thickening. No bowel obstr uction. Normal appendix. BONES AND SOFT TISSUES: No suspicious lytic or b lastic lesions. No acute osseous injury. IMPRESSION: 6 mm left upper p ole renal calculus and mild left hydronephrosis. 2.8 cm left adrenal myelol ipoma. Signed by: Iron Jerez MD on 03/03/2019 9:08 AM Dictated By: CHRISTIANO JEREZ MD 7 Transcrib ed By: SHANNAN on 03/03/19907 COPY TO: RAMESH MORA MD Saccharomyces cerevisiae IgG [id number] 20:26:00* Test Item Value Reference Range Interpretation Comments Saccharomyces cerevisiae IgG Ab (test code = 6713-2) 35.1 0 .0-24.9 H Negative <20.0 Equivocal 20.1 - 24.9 Positive >or= 25.0[facility] IgA Ab 2019-02-18 20:26:00* Test Item Value Reference Range Interpretation Comments Saccharomyces cerevisiae IgA Ab (test code = 99408-7) 21.2 0.0-24.9 Negative <20.0 Equivocal 20.1 - 24.9 Positive >or= 25.0IgA and IgG antibody testing for S. cerevisiae isuseful adjunct testing for differentiating Crohn'sdisease and ulcerative colitis. Close to 80% ofCrohn's disease patients are positive for eitherIgA or IgG. In ulcerative colitis, less than 15% arepositive for IgG and less than 2% are positive forIgA. Fewer than 5% are positive for either IgG orIgA antibody, and no healthy controls had antib odyfor both.[facility] HospitalAtypical p-[id number] 20:26:00* Test Item Value Reference Range Interpretation Comments Atypical p-ANCA (test code = 05488-7) <1:20 Neg:<1:20 The atypical pANCA pattern has been observed in asignificant percentage of patie nts with ulcerative colitis,primary sclerosing cholangitis and autoimmune hepati tis. ASCA+/PANCA- Suggestive of Crohn's disease ASCA-/PANCA+ S uggestive of Ulcerative colitisPerformed at: [facility] [address] [place], [place] [id number] Director: Fatou Richard MD, Phone: [phone] Heightstool [id number] 20:25:00 * Test Item Value Reference Range Interpretation Comments Stool Calprotectin (test code = 53157-3) <16 0-120 Concentration Interpretation Follow-Up<16 - 50 ug/g Normal None>50 -120 ug/g Borderline Re-evaluate in 4-6 weeks >120 ug/g Abnormal Repeat as clinically indicatedPerformed at: [employer] [id number] Director: Fatou Richard MD, Phone: [phone] Memorial HospitalC-Reactive [id number] 09:37:00* Test Item Value Reference Range Interpretation Comments C-Reactive Protein (test code = 1988-5) 9 0-10 Performed at: [facility] [id number] Director: Ye North MD, Phone: [phone] Medical Center Harker Heightstool Lactoferrin (LAB)2019-02-13 13:13:00* Test Item Value Reference Range Interpretation Comments Stool Lactoferrin (LAB) (test code = 70881-6) NEGATIVE NEGATIVE Testing on stool aspirate specimens is outside rock climbing team member claims since specime n type not validated on this assay.[facility] Clostridium Difficile Toxin A & [id number] 13:13:00* Test Item Value Reference Range Interpretation Comments Clostridium Difficile Toxin A & B (test code = 787113096) NEGATIVE NEGATIVE Testing on stool aspirate specimens is outside rock climbing team member claims since specime n type not validated on this assay.[facility] Erythrocyte Sedimentation [id number] 12:38:00* Test Item Value Reference Range Interpretation Comments Erythrocyte Sedimentation Rate (test code = 4537-7) 13 0- 20 [facility] HospitalErythrocyte sedimentation rate by Westergren [id number] 10:55:00* Test Item Value Reference Range Interpretation Comments Erythrocyte Sedimentation Rate (test code = 4537-7) 13 0- 20 [facility] Heightser[facility] acosta's yeast IgG antibody assay (units/volume)2019-02-13 10:55:00* Test Item Value Reference Range Interpretation Comments Saccharomyces cerevisiae IgG Ab (test code = 6713-2) 35.1 0 .0-24.9 Negative <20.0 Equivocal 20.1 - 24.9 Positive >or= 25.0[facility] Height[facility] acosta's yeast IgA antibody assay (units/volume)2019-02-13 10:55:00* Test Item Value Reference Range Interpretation Comments Saccharomyces cerevisiae IgA Ab (test code = 51115-8) 21.2 0.0-24.9 Negative <20.0 Equivocal 20.1 - 24.9 Positive >or= 25.0IgA and IgG antibody testing for S. cerevisiae isuseful adjunct testing for differentiating Crohn'sdisease and ulcerative colitis. Close to 80% ofCrohn's disease patients are positive for eitherIgA or IgG. In ulcerative colitis, less than 15% arepositive for IgG and less than 2% are positive forIgA. Fewer than 5% are positive for either IgG orIgA antibody, and no healthy controls had antib odyfor both.[facility] Heightserum atypical perinuclear neutrophil cytoplasmic antibody titer by [id number] 10:55:00* Test Item Value Reference Range Interpretation Comments Atypical p-ANCA (test code = 89676-1) <1:20 Neg:<1:20 The atypical pANCA pattern has been observed in asignificant percentage of patie nts with ulcerative colitis,primary sclerosing cholangitis and autoimmune hepati tis. ASCA+/PANCA- Suggestive of Crohn's disease ASCA-/PANCA+ S uggestive of Ulcerative colitisPerformed at: [facility] [id number] Director: Fatou Richard MD, Phone: [phone] Heightserum or plasma C reactive protein measurement (mass/volume)2019-02-13 10:55:00* Test Item Value Reference Range Interpretation Comments C-Reactive Protein (test code = 1988-5) 9 0-10 Performed at: - [facility] [address] [place], [place] [id number] Director: Ye North MD, Phone: [phone] Medical Center Harker Heightstool lactoferrin [id number] 10:00:00* Test Item Value Reference Range Interpretation Comments Stool Lactoferrin (LAB) (test code = 17430-6) NEGATIVE NEGATIVE Testing on stool aspirate specimens is outside rock climbing team member claims since specime n type not validated on this assay.[facility] Height[facility] calprotectin measurement (mass/mass)2019-02-13 10:00:00* Test Item Value Reference Range Interpretation Comments Stool Calprotectin (test code = 27541-8) <16 0-120 Concentration Interpretation Follow-Up<16 - 50 ug/g Normal None>50 -120 ug/g Borderline Re-evaluate in 4-6 weeks >120 ug/g Abnormal Repeat as clinically indicatedPerformed at: [facility] [id number] Director: Fatou Richard MD, Phone: [phone] Memorial HospitalClostridium difficile A and B toxin [id number] 10:00:00* Test Item Value Reference Range Interpretation Comments Clostridium Difficile Toxin A & B (test code = 323243745) NEGATIVE NEGATIVE Testing on stool aspirate specimens is outside rock climbing team member claims since specime n type not validated on this assay.[facility] HospitalUrine [id number] 08:22:00* Test Item Value Reference Range Interpretation Comments Urine Test (test code = 2106-3) NEGATIVE NEGATIVE [facility]
--- OUTSIDE RECORDS SUMMARY | 2020-03-05 20:48 | XMS REPORT | Clinical Summary ---
Author Author [facility] Organization [facility] Address Unknown Phone Unavailable Care Team Providers Care Medical Coding Specialist Name Role Phone Christianne De MD PCP [phone] Allergies Comments Active Allergy Reactions Severity Noted Date Fexofenadine Rash Low 06/21/2016 Doxycycline Unknown 08/24/2015 Reaction Ibuprofen Palpitations Low 10/10/2019 Lysolecithin Anaphylaxis High 02/04/2019 Penicillin Hives 02/04/2019 Penicillins 08/24/2015 Medications End Date Status Medication Sig Dispensed Refills Start Date Active topiramate (TOPAMAX) 100 07/24 TAKE 1 30 /18 /201 MG tablet TABLET BY 6 MOUTH EVERY DAY Active hydroxychloroquine Daily 0 (Plaquenil) 200 mg tablet Active amitriptyline (ELAVIL) 75 Take by mouth 0 MG tablet nightly. Active montelukast (SINGULAIR) Take 10 mg by 0 10 mg tablet mouth nightly. Active furosemide (LASIX) 20 mg Take 20 mg by 0 tablet mouth 2 (two) times a day. Active lisinopriL (PRINIVIL) 2.5 Take 2.5 mg 0 mg tablet by mouth daily. Active hydroxychloroquine Daily 0 (Plaquenil) 200 mg tablet 10/10/2019 Discontinued (Discontinued b y another clinician) amitriptyline (ELAVIL) 50 75 mg. TAKE 1 1 02/0 3/201 MG tablet AND 1/2 6 TABLETS BY MOUTH EVERY EVENING 10/10/2019 Discontinued CYANOCOBALAMIN/COBAMAMIDE Place under 0 (B-12 PLUS SL) the tongue. 10/10/2019 Discontinued (Discontinued b y another clinician) ETODOLAC ORAL Take 100 mg 0 by mouth. 10/10/2019 Discontinued acetaminophen-codeine Take 1 tablet 0 (TYLENOL WITH CODEINE #3) by mouth 300-30 mg per tablet every 4 (four) hours as needed for moderate pain. 10/10/2019 Discontinued nabumetone (RELAFEN) 500 SI-2 TABS 120 tablet 0 201 MG tablet PO BID 8 10/10/2019 Discontinued (Discontinued b y another clinician) pantoprazole (PROTONIX) Take 40 mg by 0 40 MG EC tablet mouth daily. Active Problems Problem Noted Date Biceps tendinitis on right 03/13/2018 Bursitis of right shoulder 03/13/2018 Leukocytosis 08/24/2015 Elevated blood pressure 08/24/2015 Allergic rhinitis 08/24/2015 Neck pain 08/24/2015 Headache 08/24/2015 Groin mass 08/24/2015 Encounters Care Team Description Date Type Specialty Victor Hugo Dennis MD Cyst of right ovary (Primary Dx) 12/12/2019 Office Visit Obstetrics and Gyne cology Victor Hugo Dennis MD Pelvic pain 12/12/2019 Ancillary Obstetrics and Gyne cology Procedure 12/12/2019 Travel Victor Hugo Dennis MD Well woman exam (Primary Dx); Pelvic pain 12/08/2019 Office Visit Obstetrics and Gyne cology 12/08/2019 Travel Victor Hugo Dennis MD Vulvar abscess (Primary Dx) 10/10/2019 Office Visit Obstetrics and Gyne cology 10/09/2019 Travel after 03/05/2019 Family History Medical History Relation Name Comments [...] Started: 08/24/1989 Current Some Day Smoker Cigarettes 1 Smokeless Tobacco: Never Used Tobacco Cessation: Ready to Quit: Yes; C ounseling Given: No Drinks/Week oz/Week Comments Alcohol Use 2 Cans of beer 2.0 Yes Sex Assigned at Date Recorded Not on file Industry Job Start Date Occupation Not on file Not on file Not on file Travel End Travel History Travel Start No recent travel history available. Last Filed Vital Signs Reading Time Taken Comments Vital Sign 135/90 12/12/2019 9:52 AM CDT Blood Pressure 105 12/12/2019 9:52 AM CDT Pulse - - Temperature - - Respiratory Rate - - Oxygen Saturation - - Inhaled Oxygen Concentration 99.4 kg (219 lb 3.2 oz) 12/12/2019 9:52 AM CDT Weight 160 cm (5' 3") 12/12/2019 9:52 AM CDT Height 38.83 12/12/2019 9:52 AM CDT Body Mass Index Plan of Treatment Health Maintenance Due Date Last Done Comments INFLUENZA VACCINE 03/25/2020 CERVICAL CANCER SCREENING 12/07/2022 12/08/2019, 11/23/2013 Procedures Comments Procedure Name Priority Date/Time Associated Diag nosis US PELVIS COMPLETE (AMB Routine 12/12/2019 Pelvic pain IN-CLINIC ONLY) 9:33 AM CDT THINPREP TIS PAP REFLEX Routine 12/08/2019 Well w amaya exam HPV MRNA E6/E7 4:10 PM CDT after 03/05/2019 Results * US Pelvis Complete (AMB In-Clinic ONLY) (12/12/2019 9:33 AM CDT) Specimen Narrative Performed At [facility] Uterus: 8.2 X 4.1 X 4.2CM Endometrium: 2.2CM Right Ovary: 5.1 X 2.0 X 2.6CM Cyst: YES, MULTIPLE CYSTIC STRUCTURES S EEN LARGEST MEASURES: 2.0 X 2.0 X 1.8CM Left Ovary: 2.7 X 1.5 X 2.1CM Cyst: NO, MULTIPLE FOLLICLES Right Adnexa: WNL Left Adnexa: WNL LG Performing Organization Address City/State/Zipcode Ph one Number [facility] [address] [place] [address] * THINPREP TIS PAP REFLEX HPV mRNA E6/E7 (12/08/2019 4:10 PM CDT) Clinical None given [facility] [place] Date of last 20,200,615 [facility] period [facility] Prev. pap: NONE GIVEN [facility] [place] Prev. bx: NONE GIVEN [facility] [place] Source [facility] [place] Statement of Comment: [facility] adequacy Satisfactory for evaluation. DI[facility]NOST ICS Endocervical/transformation [facility] zone component present. Interpretation/ Comment: Negative for [facility] result: intraepithelial lesion or DIAGNOSTICS malignancy. KYE Comment Comment: [facility] This Pap test has been DIAGNOSTICS evaluated with computer FISHMAN assisted technology. [employer]chnolog[facility] Comment: [facility] sarkis DJL, CT (ASCP) DIAGNOSTICS CT screening location: [facility] [address] [place] [address], [facility] [id number] Comment Comment: [facility] EXPLANATORY NOTE: DIAGNOSTICS The Pap is a screening test [place] for cervical cancer. It is not a diagnostic test and is subject to false negative and false positive results. It is most reliable when a satisfactory sample, regularly obtained, is submitted with relevant clinical findings and history, and when the Pap result is evaluated along with historic and current clinical information. Specimen Swab Resulting Agency Comment Performing Organization Information: Site ID: [id number] Name: [facility] Address: [address] [place] [id number] Director: Carlos Gonzalez Performing Organization Address City/State/Zipcode Ph one Number [address] [phone] after 03/05/2019 Insurance Type Payer Benefit Subscriber ID Effective Phone Address Plan / Dates Group O CIGPEDRO WHITTEN OPEN xxxxxxxxx 2015-P ACCESS/NET resent WORK Advance Directives For more information, please contact: [phone] Patient Sample Maker Original Explanation Type Date Recorded Advance Directives, 05/17/2016 3:46 PM Living Will and Medical Power of Law Office Assistant Advance Directives, 06/21/2016 7:01 PM Living Will and Medical Power of Law Office Assistant
[2020-03-05] MEDS ORDERED: SODIUM CHLORIDE 0.9% 50ML 50 ML ONE (20:57)
[2020-03-05] MEDS ORDERED: IOPAMIDOL 370 MG/ML 200 ML INFUS..BTL INJ ONE (20:57)
[2020-03-05] MEDS ORDERED: KETOROLAC TROMETHAMINE 30 MG/ML VIAL ONE (21:01)
[2020-03-05] MEDS ORDERED: SODIUM CHLORIDE 0.9% 1000ML 1,000 ML ONE (21:02)
[2020-03-05] MEDS ORDERED: ONDANSETRON HCL INJ 2MG/ML 2ML 2 MG/ML VIAL ONE ×2 (21:02→22:23)
[2020-03-05] MEDS ORDERED: FAMOTIDINE 20 MG/2 ML VIAL IV ONE (21:02)
[2020-03-05] MEDS: SODIUM CHLORIDE 0.9% 1000ML 1,000 ML IV SCH (21:05)
[2020-03-05] MEDS ORDERED: MORPHINE SULFATE INJ 4 MG/ML INJ 1ML IV STA (22:05)
--- NOTE | 2020-03-05 22:22 | Diagnostic Imaging Report ---
EXAM: CT Abdomen and Pelvis WITH contrast INDICATION: General abdominal pain, left flank pain COMPARISON: None. TECHNIQUE: Abdomen and pelvis were scanned utilizing a multidetector helical scanner from the lung base to the pubic symphysis after administration of IV contrast. Coronal and sagittal reformations were obtained. Routine protocol was performed. Scan was performed when during portal venous phase. IV CONTRAST: 100 mL of Isovue 370 ORAL CONTRAST: None COMPLICATIONS: None RADI[facility] DOSE: Total DLP: 777.58 mGy*cm Estimated effective dose: (DLP x 0.015 x size factor) mSv CTDIvol has been reviewed. It is below the limits set by the Radiation Protocol Committee (RPC). Dose modulation, iterative reconstruction, and/or weight based adjustment of the mA/kV was utilized to reduce the radiation dose to as low as reasonably achievable. FINDINGS: LINES and TUBES: None. LOWER THORAX: Unremarkable HEPATOBILIARY: The liver is enlarged and diffusely hypodense compared to the spleen, consistent with diffuse hepatic diffuse hepatic steatosis. No focal hepatic lesions. No biliary ductal dilation. GALLBLADDER: No radio-opaque stones or sludge. No wall thickening. SPLEEN: No splenomegaly. PANCREAS: No focal masses or ductal dilatation. 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 The right adrenal gland is normal. KIDNEYS/URETERS: 7 mm obstructive stone in the left proximal ureter with hydronephrosis. There is left perinephric fat stranding and delayed nephrogram. Kidneys enhance symmetrically. No hydronephrosis. No cystic or solid mass lesions. GI TRACT: No abnormal distention, wall thickening, or evidence of bowel obstruction. Appendix is normal. PELVIC ORGANS/BLADDER: Unremarkable. LYMPH NODES: No lymphadenopathy. VESSELS: Scattered mild arterial vascular calcifications. PERITONEUM / RETROPERITONEUM: No free air or fluid. BONES: Unremarkable. SOFT TISSUES: Unremarkable. IMPRESSION: 1. A 7 mm obstructive stone in the left proximal ureter with mild hydronephrosis. Left perinephric fat stranding is suggestive of associated forniceal rupture. 2. Enlarged and steatotic liver. Signed by: Noah Bowden MD on 03/05/2020 10:19 PM
[2020-03-05] MEDS ORDERED: MORPHINE SULFATE INJ 4 MG/ML INJ 1ML ONE (22:23)
[2020-03-05 22:59] LABS: BASOPHILS # (AUTO) 0.1 (0.0-0.1); BASOPHILS % 0.4 % (0.0-1.0); EOSINOPHILS # (AUTO) 0.1 (0.0-0.4); EOSINOPHILS % 0.6 % (0.0-6.0); HEMATOCRIT 46.5 % (34.2-44.1); HEMOGLOBIN 15.6 g/dL (12.0-16.0); LYMPHOCYTES # (AUTO) 1.5 (1.0-3.2); LYMPHOCYTES % 7.6 % (18.0-39.1); MEAN CORPUSCULAR HEMOGLOBIN 31.1 pg (28-32); MEAN CORPUSCULAR HGB CONC 33.5 g/dL (31-35); MEAN CORPUSCULAR VOLUME 92.6 fL (81-99); MONOCYTES # (AUTO) 1.4 (0.2-0.8); MONOCYTES % 7.5 % (4.4-11.3); NEUTROPHILS # (AUTO) 15.8 (2.1-6.9); NEUTROPHILS % 83.4 % (38.7-80.0); PLATELET COUNT 316 x10e3/uL (140-360); RED BLOOD COUNT 5.02 x10e6/uL (3.6-5.1); RED CELL DISTRIBUTION WIDTH 13.6 % (11.7-14.4)
[2020-03-05] MEDS ORDERED: CIPROFLOXACIN 400 MG/D5W 200ML 200 ML IV SCH ×2 (23:00→23:30)
[2020-03-05] MEDS ORDERED: SODIUM CHLORIDE FLUSH 10 ML SYR INJ PRN (23:15)
--- OUTSIDE RECORDS SUMMARY | 2020-03-05 23:27 | XMS REPORT | Clinical Summary ---
Author Author [facility] Address Unknown Phone Unavailable Care Team Providers Care Sales Representative [facility]om[facility] Name Role Phone Christianne De MD PCP [phone] Allergies Comments Active Allergy Reactions Severity [...] Address City/State/Zipcode Ph one Number [facility] [address] [place] [address] * THINPREP TIS PAP REFLEX HPV mRNA E6/E7 (12/08/2019 4:10 PM CDT) Clinical None given [facility] [place] Date of last 20,200,615 [facility] menstrual [facility]AGNOSTICS period [facility] Prev. pap: NONE GIVEN [facility] [place] Prev. bx: NONE GIVEN [facility] [place] Source [facility] [place] Statement of Comment: [facility] adequacy Satisfactory for evaluation. DIAGNOST ICS Endocervical/transformation [facility] zone component present. Interpretation/ Comment: Negative for [facility] result: intraepithelial lesion or DIAGNOSTICS malignancy. YKE Comment Comment: [facility] This Pap test has been DIAGNOSTICS evaluated with computer FISHMAN assisted technology. Cytotechnologis Comment: ERA[facility]O sarkis DJL, CT (ASCP) DIAGNOSTICS CT screening location: [facility] [address] [place] [address], [facility] [id number] Comment Comment: [facility] EXPLANATORY NOTE: DIAGNOSTICS The Pap is a screening test [place] for cervical cancer. It is not a diagnostic test and is subject to false negative and false positive results. It is most reliable when a satisfactory sample, regularly obtained, is submitted with relevant clinical findings and history, and when the Pap result is evaluated along with historic and current clinical information. Specimen Swab Resulting Agency Comment Performing Organization Information: Site ID: [id number] Name: [facility] Address: [address] [place] [id number] Director: Carlos Gonzalez Performing Organization Address City/State/Zipcode Ph one Number [address] [phone] after 03/05/2019 Insurance Type Payer Benefit Subscriber ID Effective Phone Address Plan / Dates Group O CIGPEDRO WHITTEN OPEN xxxxxxxxx 2015-P ACCESS/NET resent WORK Advance Directives For more information, please contact: [phone] Patient Therapeutic Radiologist Explanation Type Date Recorded Advance Directives, 05/17/2016 3:46 PM Living Will and Medical Power of Blind Hanger Advance Directives, 06/21/2016 7:01 PM Living Will and Medical Power of Blind Hanger
--- OUTSIDE RECORDS SUMMARY | 2020-03-05 23:27 | XMS REPORT | Continuity of Care Document ---
Author Author [facility] t Organization [facility] Address 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 Name Role Phone NONSTAFF PCP Unavailable Tisha CAST Attphys Unavailable Jeannie PHELAN, Sheldon Gay Attphys Bishop BRADSHAW Attphys Unavailable DESIREEMPTisha Giles Attphys Unavailable Payers Payer Name Policy Type Policy Number Effective Date Expiration Date Mariely navneet ORTIZ OPEN ACCESS/NETWORKxxxxxxxxx2015-PresentO xxxxxxxxx 2015 00:00:00 Reji Frost Cigna Hmo NA 2015 00:00:00 [facility] Problems Condition Name Condition Details Condition Category [...] Headache Headache Disease Active 2015-08-24 00:00:00 Reji Overtonist Groin mass Groin mass Disease Active 2015-08-24 00:00:00 Reji Frost Problem Condition Active [facility] Allergies, Adverse Reactions, Alerts Allergy Name Allergy Type Status Severity Reaction(s) Onset Date Inacti ve Date Treating Clinician Comments Source Ibuprofen Propensity to adverse reactions to drug Active Palpitations 2019-10-10 00:00:00 Reji Meth odist Doxycycline Allergy to substance Active severe yeast i nfection 2019-02-04 00:00:00 [facility] lysol Allergy to substance Active Severe vocal cord disf unction 2019-02-04 00:00:00 [facility] Penicillin Allergy to substance Active very sick 2019-02-04 00:00: 00 [facility] Lysolecithin Propensity to adverse reactions to drug [...] disease H ike Frost Maternal grandmother Hypertension Branden Frost Natural mother Cancer [place] [facility] Natural mother Diabetes [place] [facility] Paternal grandfather Heart disease H [...] 09:57:13 Yes QD Take by mouth nightly. Rjei Frost montelukast (SINGULAIR) 10 mg tablet 2019-12-12 [...] mg tablet 2019-12-08 15:52:34 Yes Daily Reji Griffith t Naproxen (Naprosyn) 500 Mg TABLET Naproxen (Naprosyn) 500 Mg TABLET 2019-10-29 08:59:00 Yes 500 Twice A Day [facility] Tramadol Hcl (Ultram) 50 Mg TABLET Tramadol Hcl (Ultram) 50 Mg TABLET 2019-10-29 08:59:00 Yes 50 Four Times Daily as needed fo r Pain [facility] Azithromycin (Z-Quoc) 250 Mg TABLET Azithromycin (Z-Quoc) 250 Mg TABLET 2019-10-29 07:36:00 Yes 250 Use As Directed [facility] Benzonatate (Tessalon Perle) 100 Mg CAPSULE Benzonatat e (Tessalon Perle) 100 Mg CAPSULE 2019-10-29 07:36:00 Yes 1 Thre e Times A Day as needed for Cough [facility] pantoprazole (PROTONIX) 40 MG EC tablet 10:28:27 [...] 202 00:00:00 No SI-2 TABS PO BID Reji Frost topiramate (TOPAMAX) 100 MG tablet 2015-08-12 00:00:00 Yes 07/24 TAKE 1 TABLET BY MOUTH EVERY DAY [facility] Jesse laura amitriptyline (ELAVIL) 50 MG tablet 2015-07-28 00:00:0 0 2019-10-10 00:00:00 No 75mg 75 mg. TAKE 1 AND 1/2 TABLETS BY MOUTH E VERY EVENING Reji Frost Amitriptyline Hcl Amitriptyline Hcl Yes 75 Bedt jass [facility] Dicyclomine Hcl Dicyclomine Hcl Yes 10 Three Ti mes A Day [facility] Hydroxychloroquine Sulfate (Plaquenil) 200 Mg TAB Hydr oxychloroquine Sulfate (Plaquenil) 200 Mg TAB Yes 200 Daily [facility] Pantoprazole Sodium (Protonix) 40 Mg TABLET. Pantopr azole Sodium (Protonix) 40 Mg TABLET. Yes 40 Daily [facility] Polyethylene Glycol 3350 (Miralax) 17 Gm POWD.PACK Omer yethylene Glycol 3350 (Miralax) 17 Gm POWD.PACK Yes 1 Daily [facility] Topiramate (Topamax) 50 Mg TABLET Topiramate (Topamax) 50 Mg TABLET Yes 100 Daily [facility] Etodolac Etodolac 2019-06-19 00:00:00 No 100 Daily [facility] Ranitidine Hcl Ranitidine Hcl 2019-06-19 00:00:00 No 1 Daily [facility] Vital Signs Vital Name Observation Time Observation Value Comments Source Systolic blood pressure 2019-12-12 09:52:00 135 mm[Hg] [facility] Diastolic blood pressure 2019-12-12 09:52:00 90 mm[Hg] [place] [facility] Heart rate 2019-12-12 09:52:00 105 /min Reji Frost Body height 2019-12-12 09:52:00 160 cm [facility] Body weight 2019-12-12 09:52:00 99.428 kg [place] [facility] BMI 2019-12-12 09:52:00 38.83 kg/m2 [facility] Weight 2019-10-29 06:25:00 220 [lb_av] [facility] BMI (Body Mass Index) 2019-10-29 06:25:00 39.0 kg/m2 [facility] Body Temperature 2019-06-23 07:40:00 98.9 [degF] [facility] Procedures Procedure Date / Time Performed Performing Clinician [facility] e US PELVIS COMPLETE (AMB IN-CLINIC ONLY) 2019-12-12 09:33:52 Victor Hugo Andrews THINPREP TIS PAP REFLEX HPV MRNA E6/E7 2019-12-08 16:10:00 Victor Hugo Hilliard COLONOSCOPY W/LESION REMOVAL 2019-06-23 00:00:00 [facility] COLONOSCOPY W/LESION REMOVAL 2019-06-23 00:00:00 [facility] EGD BIOPSY SINGLE/MULTIPLE 2019-02-13 00:00:00 [facility] COLONOSCOPY AND BIOPSY 2019-02-13 00:00:00 [facility] COLONOSCOPY W/LESION REMOVAL 2019-02-13 00:00:00 [facility] COLONOSCOPY W/LESION REMOVAL 2019-02-13 00:00:00 [facility] Plan of Care Planned Activity Planned Date Details Comments Source Future Scheduled Test 2022-12-07 00:00:00 Screening for alyssa gnant neoplasm of cervix (procedure) [code = 735943655] Reji dockery Future Scheduled Test 2020-03-25 00:00:00 INFLUENZA VACCINE [code = INFLUENZA VACCINE] [facility] Instructions Bronchitis (Acute) - Adult C HI [facility] Encounters Start Date/Time End Date/Time Encounter Type Admission Type Attendi [facility] Care Department Encounter ID Source 2019-12-12 00:00:00 2019-12-12 00:00:00 Outpatient VICTOR HUGO VYAS [facility] [id number] [facility] 2019-12-12 00:00:00 2019-12-12 00:00:00 Outpatient VICTOR HUGO VYAS [facility] [id number] [facility] 2019-12-08 00:00:00 2019-12-08 00:00:00 Outpatient VICTOR HUGO VYAS [facility] [id number] [facility] 2019-10-29 06:19:00 2019-10-29 09:47:00 Departed Emergency Room 1 AUGUSTINE GUSTABO [facility] [id number] I [facility] 2019-10-10 00:00:00 2019-10-10 00:00:00 Outpatient VICTOR HUGO VYAS [facility] [id number] [facility] 2019-06-23 05:50:00 2019-06-23 05:50:00 Registered Surgical Day Care [facility] [id number] [facility] 2019-03-03 07:47:00 2019-03-03 09:40:00 Departed Emergency Room 1 CALINTishaDARCIELOUIS [facility] [id number] [facility] 2019-02-13 08:38:00 2019-02-13 08:38:00 Registered Surgical Day Care [facility] [id number] [facility] 2018-11-14 16:38:00 2018-11-14 16:38:00 Registered Clinic [facility] [id number] [facility] 2018-10-10 12:30:00 2018-10-10 14:30:00 Departed Emergency Room [facility] [id number] [facility] Results Test Description Test Time Test Comments Results Result Comments Source CT ABD/PEL WITH CONTRAST-HOPD 2020-03-05 22:06:00 [facility] [address] [address] Patient Name: KHADRA BEST MR #: [id number] : 1975 Age/Sex: 44/F Req #: [id number] Adm Physician: Ordered by: GHANSHYAM CAST MD Report #: [id number] Location: [facility] Room/Bed: Procedure: [id number] HOPD/CT ABD/PEL WITH CONTRAST-HOPD Exam Date: 03/05/20 Exam Time: 2114 REPORT STATUS: Signed EXAM: CT Abdomen and Pelvis WITH contrast INDICATION: General abdominal pain, left flank pain COMPARISON: None. TECHNIQUE: Abdomen and pelvis were scanned utilizing a multidetector helical scanner from the lung base to the pubic symphysis after administration of IV contrast. Coronal and sagittal reformations were obtained. Routine protocol was performed. Scan was performed when during portal venous phase. IV CONTRAST: 100 mL of Isovue 370 ORAL CONTRAST: None COMPLICATIONS: None RADIATION DOSE: Total DLP: 777.58 mGy*cm Estimated effective dose: (DLP x 0.015 x size factor) mSv CTDIvol has been reviewed. It is below the limits set by the Radiation Protocol Committee (RPC). Dose modulation, iterative reconstruction, and/or weight based adjustment of the mA/kV was utilized to reduce the radiation dose to as low as reasonably achievable. FINDINGS: LINES and TUBES: None. LOWER THORAX: Unremarkable HEPATOBILIARY: The liver is enlarged and diffusely hypodense compared to the spleen, consistent with diffuse hepatic diffuse hepatic steatosis. No focal hepatic lesions. No biliary ductal dilation. GALLBLADDER: No radio-opaque stones or sludge. No wall thickening. SPLEEN: No splenomegaly. PANCREAS: No focal masses or ductal dilatation. 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 The right adrenal gland is normal. KIDNEYS/URETERS: 7 mm obstructive stone in the left proximal ureter with hydronephrosis. There is left perinephric fat stranding and delayed nephrogram. Kidneys enhance symmetrically. No hydronephrosis. No cystic or solid mass lesions. GI TRACT: No abnormal distention, wall thickening, or evidence of bowel obstruction. Appendix is normal. PELVIC ORGANS/BLADDER: Unremarkable. LYMPH NODES: No lymphadenopathy. VESSELS: Scattered mild arterial vascular calcifications. PERITONEUM / RETROPERITONEUM: No free air or fluid. BONES: Unremarkable. SOFT TISSUES: Unremarkable. IMPRESSION: 1. A 7 mm obstructive stone in the left proximal ureter with mild hydronephrosis. Left perinephric fat stranding is suggestive of associated forniceal rupture. 2. Enlarged and steatotic liver. Signed by: Nazanin Tamayo MD on 03/05/2020 10:19 PM Dictated By: NAZANIN TAMAYO MD 18 Transcribed By: SHANNAN on 03/05/202218 COPY TO: GHANSHYAM CAST MD US Pelvis Complete (AMB In-Clinic ONLY) 2019-12-15 14:48:06 PELVIC ULTRASOUND Uterus: 8.2 X 4.1 X 4.2CMEndometrium: 2.2CM Right Ovary: 5.1 X 2.0 X 2.6CMCyst: YES, MULTIPLE CYSTIC STRUCTURES SEEN LARGEST MEASURES: 2.0 X 2.0 X 1.8CM Left Ovary: 2.7 X 1.5 X 2.1CMCyst: NO, MULTIPLE FOLLICLES Right Adnexa: WNLLeft Adnexa: WNL LG [place] [facility] THINPREP TIS PAP REFLEX HPV mRNA E6/E7 2019-12-11 13:49:00 Test Item Clinical information (test code = 11281-6) None given Date of last menstrual period (test code = 8665-2) 20191208 Prev. pap: (test code = 14605-3) NONE GIVEN Prev. bx: (test code = 34829-3) NONE GIVEN Source (test code = 74424-3) Endocervix Statement of adequacy (test code = 74702-2) Satisfactory for evaluation.Endocervical/transformation zone componentpresent. Interpretation/result: (test code = 11592-2) Negative for intraepithelial lesion or malignancy. Comment (test code = 72829-6) This Pap test has been evaluated with computerassisted technology. Nursing Teacher (test code = 20486-2) DJL, CT (ASCP)CT screening location: [address], [place] [id number] Comment (test code = 1812072) EXPLANATORY NOTE: The Pap is a screening test for cervical cancer. It is not a diagnostic test and is subject to false negative and false positive results. It is most reliable when a satisfactory sa mple, regularly obtained, is submitted with relevant clinical findings and history, and when the Pap result is evaluated along with historic and current clinical information. RAC (test code = RAC) Performing Organization Info rmation: Site ID: RGA Name: [facility] Address: [address] [place] [id number] Director: Carlos Mendoza MethodistFluoroscopic procedure less than one hour [id number] 09:30:00* Test Item Value Reference Range Interpretation [...] under 564(g) of the ACT.Testing performed by [address] [id number]CT CHEST WITH OBEEPEJO-[id number] 08:20:00 [facility] [address] [address] Patient Name: KHADRA BEST MR #: [id number] : Age/Sex: 44/F Req #: [id number] Adm Physician: Ordered by: NATASHA RAYA MD Report #: [id number] Location: [facility] Room/Bed: Procedure: [id number] H OPD/CT CHEST WITH CONTRAST-HOPD Exam Date: [...] RAYA MD Urine human chorionic gonadotropin (hCG) [id number] 06:30:00* Test Item Value Reference Range Interpretation Comments Urine Test (test code = 2106-3) NEGATIVE NEGATIVE [facility] WO [id number] 08:59:00 [facility] [address] [place] [address] Patient Name: KHADRA BEST MR #: [id number] : 1975 Age/Sex: 43/F Req #: [id number] Adm Physician: Ordered by: RAMESH MORA MD Report #: [id number] Location: [facility] Room/Bed: Procedure: [id number] HOPD/CT ABD/PEL WO CONTRAST-HOPD Exam Date: 03/03/19 [...] TO: RAMESH MORA MD Saccharomyces cerevisiae IgG [id number] 20:26:00* Test Item Value Reference Range Interpretation Comments Saccharomyces cerevisiae IgG Ab (test code = 6713-2) 35.1 0 .0-24.9 H Negative <20.0 Equivocal 20.1 - 24.9 Positive >or= 25.0[facility] Texasaccharomyces cerevisiae IgA Ab 2019-02-18 20:26:00* Test Item Value Reference Range Interpretation Comments Saccharomyces cerevisiae IgA Ab (test code = 43016-9) 21.2 0.0-24.9 Negative <20.0 Equivocal 20.1 - [...] and no healthy controls had antib odyfor both.[facility] TylerAtypical a-[id number] 20:26:00* Test Item Value Reference Range Interpretation Comments Atypical p-ANCA (test code = 26211-2) <1:20 Neg:<1:20 The atypical pANCA pattern has been observed in asignificant percentage of patie nts with ulcerative colitis,primary sclerosing cholangitis and autoimmune hepati tis. ASCA+/PANCA- Suggestive of Crohn's disease ASCA-/PANCA+ S uggestive of Ulcerative colitisPerformed at: [facility] [address] [id number] Director: Fatou Richard MD, Phone: [phone] University of Texastool Gllgdswxxgzc6735-78-07 20:25:00 * Test Item Value Reference Range Interpretation Comments Stool Calprotectin (test code = 03655-2) <16 0-120 Concentration Interpretation Follow-Up<16 - 50 ug/g Normal None>50 -120 ug/g Borderline Re-evaluate in 4-6 weeks >120 ug/g Abnormal Repeat as clinically indicatedPerformed at: [facility] [address] [id number] Director: Fatou Richard MD, Phone: [phone] Health TylerC-Reactive Rfygqfi6337-29-35 09:37:00* Test Item Value Reference Range Interpretation Comments C-Reactive Protein (test code = 1988-5) 9 0-10 Performed at: [address] [id number] Director: Ye North MD, Phone: [phone] [facility] Center at The University of Texastool Lactoferrin (LAB)2019-02-13 13:13:00* Test Item Value Reference Range Interpretation Comments Stool Lactoferrin (LAB) (test code = 28420-5) NEGATIVE NEGATIVE Testing on stool aspirate specimens is outside drawing supervisor claims since specime n type not validated on this assay.[facility] Clostridium Difficile Toxin A & [id number] 13:13:00* Test Item Value Reference Range Interpretation Comments Clostridium Difficile Toxin A & B (test code = 753990484) NEGATIVE NEGATIVE Testing on stool aspirate specimens is outside drawing supervisor claims since specime n type not validated on this assay.[facility] Erythrocyte Sedimentation [id number] 12:38:00* Test Item Value Reference Range Interpretation Comments Erythrocyte Sedimentation Rate (test code = 4537-7) 13 0- 20 [facility] TylerErythrocyte sedimentation rate by Westergren brjjqp7434-96-36 10:55:00* Test Item Value Reference Range Interpretation Comments Erythrocyte Sedimentation Rate (test code = 4537-7) 13 0- 20 [facility] Texaserum acosta's yeast IgG antibody assay (units/volume)2019-02-13 10:55:00* Test Item Value Reference Range Interpretation Comments Saccharomyces cerevisiae IgG Ab (test code = 6713-2) 35.1 0 .0-24.9 Negative <20.0 Equivocal 20.1 - 24.9 Positive >or= 25.0[facility] Texaserum acosta's yeast IgA antibody assay (units/volume)2019-02-13 10:55:00* Test Item Value Reference Range Interpretation Comments Saccharomyces cerevisiae IgA Ab (test code = 30189-7) 21.2 0.0-24.9 Negative <20.0 Equivocal 20.1 - [...] and no healthy controls had antib odyfor both.[facility] Texaserum atypical perinuclear neutrophil cytoplasmic antibody titer by adwsqfazvgtgzojswr3543-23-71 10:55:00* Test Item Value Reference Range Interpretation Comments Atypical p-ANCA (test code = 82036-8) <1:20 Neg:<1:20 The atypical pANCA pattern has been observed in asignificant percentage of patie nts with ulcerative colitis,primary sclerosing cholangitis and autoimmune hepati tis. ASCA+/PANCA- Suggestive of Crohn's disease ASCA-/PANCA+ S uggestive of Ulcerative colitisPerformed at: - [facility] [id number] Director: Fatou Richard MD, Phone: [phone] Texaserum or plasma C reactive protein measurement (mass/volume)2019-02-13 10:55:00* Test Item Value Reference Range Interpretation Comments C-Reactive Protein (test code = 1988-5) 9 0-10 Performed at: - [facility] [address] [id number] Director: Ye North MD, Phone: [phone] Seton Medical Center at The University of Texastool lactoferrin dbfzlrekm7185-59-23 10:00:00* Test Item Value Reference Range Interpretation Comments Stool Lactoferrin (LAB) (test code = 43311-5) NEGATIVE NEGATIVE Testing on stool aspirate specimens is outside drawing supervisor claims since specime n type not validated on this assay.[facility] Texastool calprotectin measurement (mass/mass)2019-02-13 10:00:00* Test Item Value Reference Range Interpretation Comments Stool Calprotectin (test code = 76518-9) <16 0-120 Concentration Interpretation Follow-Up<16 - 50 ug/g Normal None>50 -120 ug/g Borderline Re-evaluate in 4-6 weeks >120 ug/g Abnormal Repeat as clinically indicatedPerformed at: - [facility] [id number] [place], [place] [id number] Director: Fatou Richard MD, Phone: [phone] Health TylerClostridium difficile A and B toxin [id number] 10:00:00* Test Item Value Reference Range Interpretation Comments Clostridium Difficile Toxin A & B (test code = 389776744) NEGATIVE NEGATIVE Testing on stool aspirate specimens is outside drawing supervisor claims since specime n type not validated on this assay.[facility] TylerUrine [id number] 08:22:00* Test Item Value Reference Range Interpretation Comments Urine Test (test code = 2106-3) NEGATIVE NEGATIVE [facility]
[2020-03-05] MEDS ORDERED: CHLORDIAZEPOXIDE HCL 25 MG CAP PO PRN (23:30)
[2020-03-05] MEDS ORDERED: MULTIVITAMINS- 12 INJECTION 10 ML, FOLIC ACID MDV 5 MG, THIAMINE HCL INJ 100 MG in SODI... IV ONE (23:30)
--- NOTE | 2020-03-05 23:31 | NUR ---
CALLED [facility] FOR TRANSPORT. DISPATCHER STATES THEY WILL BE HERE SOON THEY CAN.
[2020-03-06] VITALS (9 sets, daily range): BP systolic 139–164; BP diastolic 89–109
--- NOTE | 2020-03-06 00:29 | NUR ---
CALLED TO GIVE REPORT TO KINGA ALVARADO FOR RM 110
[2020-03-06] MEDS ORDERED: LABETALOL HCL 5 MG/ML 20ML VIAL IV PRN (00:45)
[2020-03-06] MEDS ORDERED: PROVENTIL HFA6.7 GM INH (02:47)
[2020-03-06] MEDS ORDERED: FUROSEMIDE40 MG PO (02:47)
[2020-03-06] MEDS: ONDANSETRON HCL INJ 2MG/ML 2ML 2 MG/ML VIAL IV PRN ×2 (02:53→17:30)
[2020-03-06] MEDS: HYDROMORPHONE 1MG/1ML INJ IV PRN ×3 (02:53→09:15)
[2020-03-06 06:06] LABS: BASOPHILS # (AUTO) 0.1 (0.0-0.1); BASOPHILS % 0.4 % (0.0-1.0); EOSINOPHILS # (AUTO) 0.2 (0.0-0.4); HEMATOCRIT 41.6 % (34.2-44.1); HEMOGLOBIN 14.9 g/dL (12.0-16.0); LYMPHOCYTES # (AUTO) 1.6 (1.0-3.2); LYMPHOCYTES % 10.3 % (18.0-39.1); MEAN CORPUSCULAR HEMOGLOBIN 33.9 pg (28-32); MEAN CORPUSCULAR HGB CONC 35.8 g/dL (31-35); MEAN CORPUSCULAR VOLUME 94.5 fL (81-99); MONOCYTES # (AUTO) 1.6 (0.2-0.8); MONOCYTES % 10.4 % (4.4-11.3); NEUTROPHILS # (AUTO) 11.6 (2.1-6.9); NEUTROPHILS % 77.2 % (38.7-80.0); PLATELET COUNT 216 x10e3/uL (140-360); RED CELL DISTRIBUTION WIDTH 15.2 % (11.7-14.4)
--- NOTE | 2020-03-06 06:30 | NUR ---
Call placed to @ [phone] for notification of admitted patient being a patient of Dr. Jorgensen's office. Orders to switch admitting noted. And Dr. Jorgensen notified
[2020-03-06 06:31] LABS: ALBUMIN 3.7 g/dL (3.5-5.0); ALBUMIN/GLOBULIN RATIO 1.2 (0.8-2.0); ANION GAP 17.7 mmol/L (8-16); CALCIUM 8.7 mg/dL (8.4-10.2); CREATININE, SERUM 1.34 mg/dL (0.57-1.11); POTASSIUM 3.7 mmol/L (3.5-5.1)
--- NOTE | 2020-03-06 07:32 | NUR ---
The pt. is currently in bed without pain or discomfort at this time.
[2020-03-06] MEDS: SODIUM CHLORIDE 0.9% 1000ML 1,000 ML IV SCH ×2 (09:08→12:36)
--- NOTE | 2020-03-06 10:15 | NUR ---
The pt. is a smoker and was advised that she is not allowed to go outside to smoke. I advised her that I would call the drSarah for nicotine patch and I spoke with Dr. Jorgensen for order.
[2020-03-06] MEDS: NICOTINE 14 MG/EA PATCH TOP SCH (11:00)
[2020-03-06] MEDS ORDERED: DIPHENHYDRAMINE HCL 25 MG CAP PO PRN (11:15)
[2020-03-06] MEDS ORDERED: ONDANSETRON HCL INJ 2MG/ML 2ML 2 MG/ML VIAL IV PRN (11:15)
[2020-03-06] MEDS ORDERED: NALOXONE HCL INJ 0.4 MG/ML AMP IV PRN (11:15)
--- NOTE | 2020-03-06 11:51 | Consultation ---
DATE OF CONSULTATION: 03/06/2020 Urology Consultation REASON FOR CONSULTATION: Obstructive urolithiasis. HISTORY OF PRESENT ILLNESS: Michell Bañuelos is a 44-year-old woman who had a known kidney stone. She was seen previously with a stone that was present. She saw Dr. Krishna Velasco. Previously, she reports last seeing him six months ago. She reports that he did not want to intervene for her stone. The patient had persistent symptomatology. She reported to the emergency room with a 7 mm obstructive stone in the left proximal ureter with hydronephrosis and pain. She was subsequently admitted for pain control and management. The patient denies dysuria or hematuria at present time. She denies problems with urinary tract infections. PAST MEDICAL AND SURGICAL HISTORY: 1. IBS. 2. Status post colonoscopy and polypectomy x2. 3. Status post tonsillectomy and adenectomy. 4. Status post bilateral PE tubes. 5. Hypertension. 6. Smoker. ALLERGIES: PLEASE REFER TO THE MAR. CURRENT MEDICATIONS: Please refer to the MAR. SOCIAL HISTORY: The patient smokes 1 to 1-1/2 packs per day of cigarettes. She denies ethanol drug use. 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 FAMILY HISTORY: Noncontributory to the active urological problems. REVIEW OF SYSTEMS: Discussed as above in history of present illness, past medical history, otherwise negative for all systems. PHYSICAL EXAMINATION: GENERAL: Obese woman, walking around the room, in no apparent distress, but in obvious pain. She is currently afebrile. VITAL SIGNS: Currently stable. ABDOMEN: Soft, nondistended. She has left-sided costovertebral angle tenderness. Kidneys not palpable without hepatosplenomegaly. No obvious evidence of hernia. For the remaining physical examination systems, please refer to the admission history and physical in the ERT sheet. LABORATORY STUDIES: CT scan of the abdomen and pelvis revealed a 2.8 cm left adrenal mass that is consistent with myelolipoma and a stable 7 mm obstructive stone in the left proximal ureter with hydronephrosis. The fatty liver [place] [address], it was 19,000 yesterday, hemoglobin 14.9, platelets are 216,000, the patient's creatinine is 1.34. ASSESSMENT: 1. Left ureterolithiasis. 2. Left hydronephrosis. 3. Left renal colic. 4. Left adrenal mass. 5. Smoker. 6. Obesity. 7. Leukocytosis. 8. Presumably acute renal failure. PLAN: 1. I will order KUB. 2. Attempted stone passage trial. 3. Better analgesia. 4. Should the patient fail to pass the stone, cystoscopy and stent placement will be required as well as additional stone management. Thank you much for involving us in care of your patient. We will be happy to follow along with you as well as an outpatient. Albert MD Sar[place]/MODL /[phone] cc: Griffin Jorgensen MD
[2020-03-06] MEDS: CIPROFLOXACIN 400 MG/D5W 200ML 200 ML IV SCH (12:43)
--- NOTE | 2020-03-06 13:17 | NUR ---
Nutrition Screen Note RD Recommendation for Physician: Initiate PO Diet when medically feasible Plan of Care: RD following and monitoring for diet adequacy Nutrition reason for involvement: Nutrition Risk Trigger - MST Primary Diagnose(s):flank pain, kidney stones Ht:63 in Wt:222lb BMI:39.3 kg/m2 IBW:115lb RD Assessment:(03/06/2020) Initial encounter with patient. Pt states that she allergic to milk/egg whites, but that she does not have any issues with dairy products. Pt with C/O nausea. Pt had been vomiting. 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 Pt with a Hx of IBS. No significant wt changes. Current Diet: NPO Malnutrition Evaluation (03/06/2020) The patient does not meet criteria for a specified degree of malnutrition at this time. Will re-evaluate at follow-up as appropriate. Diet Education Needs Assessment: Diet education not indicated. Diet Adequacy: Not meeting calorie needs, Not meeting protein needs Tolerance: Pt is NPO Nutrition Care Level: romario Liao RD,LD,CNSC
[2020-03-06] MEDS: MORPHINE SULFATE 1 MG/ML 30ML PCA IV PRN (15:00)
--- NOTE | 2020-03-06 17:53 | Diagnostic Imaging Report ---
EXAM: Abdomen Radiograph 1 View(s) INDICATION: FOLLOW UP RENAL STONE. COMPARISON: CT of the abdomen 03/05/2020 FINDINGS/IMPRESSION: There is redemonstration of a 7 mm obstructive stone in the proximal left ureter with delayed nephrogram as indicated by retention of contrast within the left kidney. Nonobstructive bowel gas pattern. The bones are normal. Signed by: Noah Bowden MD on 03/06/2020 5:49 PM
--- NOTE | 2020-03-06 21:16 | NUR ---
Received pt in bed talking on cell phone, no s/sx of acute distress. Pt states pain is 7/10 with Morphine HOSPICE PHYSICIAN, states improved. C/o neck pain. Bed in low and locked position, call woodruff and personal items within reach. Will cont to mon.
[2020-03-07] VITALS (7 sets, daily range): BP systolic 123–158; BP diastolic 72–95
[2020-03-07] MEDS: CIPROFLOXACIN 400 MG/D5W 200ML 200 ML IV SCH ×2 (01:13→13:13)
[2020-03-07] MEDS: SODIUM CHLORIDE 0.9% 1000ML 1,000 ML IV SCH ×4 (01:13→19:30)
[2020-03-07 06:03] LABS: BASOPHILS # (AUTO) 0.1 (0.0-0.1); BASOPHILS % 0.4 % (0.0-1.0); EOSINOPHILS # (AUTO) 0.3 (0.0-0.4); EOSINOPHILS % 1.9 % (0.0-6.0); HEMATOCRIT 41.7 % (34.2-44.1); HEMOGLOBIN 13.9 g/dL (12.0-16.0); LYMPHOCYTES # (AUTO) 1.6 (1.0-3.2); LYMPHOCYTES % 11.9 % (18.0-39.1); MEAN CORPUSCULAR HEMOGLOBIN 30.8 pg (28-32); MEAN CORPUSCULAR HGB CONC 33.3 g/dL (31-35); MEAN CORPUSCULAR VOLUME 92.5 fL (81-99); MONOCYTES # (AUTO) 1.5 (0.2-0.8); MONOCYTES % 10.7 % (4.4-11.3); NEUTROPHILS # (AUTO) 10.1 (2.1-6.9); NEUTROPHILS % 74.4 % (38.7-80.0); PLATELET COUNT 234 x10e3/uL (140-360); RED BLOOD COUNT 4.51 x10e6/uL (3.6-5.1); RED CELL DISTRIBUTION WIDTH 13.5 % (11.7-14.4)
[2020-03-07 06:34] LABS: ANION GAP 15.9 mmol/L (8-16); CALCIUM 8.3 mg/dL (8.4-10.2); CREATININE, SERUM 1.25 mg/dL (0.57-1.11); POTASSIUM 3.9 mmol/L (3.5-5.1)
[2020-03-07 06:58] LABS: ALBUMIN 3.5 g/dL (3.5-5.0); ALBUMIN/GLOBULIN RATIO 1.2 (0.8-2.0); ANION GAP 16.9 mmol/L (8-16); CALCIUM 8.2 mg/dL (8.4-10.2); CREATININE, SERUM 1.25 mg/dL (0.57-1.11); POTASSIUM 3.9 mmol/L (3.5-5.1)
[2020-03-07] MEDS: MORPHINE SULFATE 1 MG/ML 30ML PCA IV PRN ×2 (07:00→21:49)
--- NOTE | 2020-03-07 08:45 | Diagnostic Imaging Report ---
EXAM: Abdomen Radiograph 1 View(s) INDICATION: FOLLOW UP STONE PROGRESS COMPARISON: CT of the abdomen 03/05/2020 FINDINGS/IMPRESSION: No interval change in position of 7 mm obstructive stone in the proximal left ureter. Nonobstructive bowel gas pattern. No pneumoperitoneum. The bones are normal. Signed by: Noah Bowden MD on 03/07/2020 8:41 AM
[2020-03-07] MEDS: NICOTINE 14 MG/EA PATCH TOP SCH (09:52)
[2020-03-08] VITALS (8 sets, daily range): BP systolic 127–161; BP diastolic 52–98
[2020-03-08] MEDS: CIPROFLOXACIN 400 MG/D5W 200ML 200 ML IV SCH ×2 (00:39→13:00)
[2020-03-08] MEDS: SODIUM CHLORIDE 0.9% 1000ML 1,000 ML IV SCH ×4 (03:40→21:06)
--- NOTE | 2020-03-08 07:10 | NUR ---
RCD PT AT BED PT IS ALERT AND ORIENTED RESTING ON BED IV PATENT BY SALINE FLUSH PT ON VEGETABLE FARMER MORPHINE AND NPO FOR PROCEDURE BED LOW AND LOCKED CALL LIGHT IN REACH
[2020-03-08] MEDS: NICOTINE 14 MG/EA PATCH TOP SCH (08:22)
--- NOTE | 2020-03-08 08:30 | NUR ---
AC TO DR DUMONT TALKED TO LAB REGARDING COVD TEST REPORT THEY SAID THEY WILL FINDOUT THE REPORT
--- NOTE | 2020-03-08 09:50 | NUR ---
AGAIN ASKED TO LAB THE COVID REPORT THEY SAID THIS LATE EVENING OR TOMORROW MORNING ,PAGED DR DUMONT TO NOTIFY THAT,AND NOTIFIED THE ADMINISTRATIVE PROCESSOR
[2020-03-08] MEDS: MORPHINE SULFATE 1 MG/ML 30ML PCA IV PRN (11:05)
--- NOTE | 2020-03-08 12:20 | NUR ---
PT WENT TO SURGERY IN SAFE CONDITION
[2020-03-08] MEDS ORDERED: B&O 60MG R/S 60 MG SUPP PR ONE (12:49)
[2020-03-08] MEDS ORDERED: IOPAMIDOL 300MG/ML 50ML INFUS..BTL IV ONE (12:49)
--- NOTE | 2020-03-08 13:00 | NUR ---
ac to nurse iv cipro given in or
[2020-03-08] MEDS ORDERED: MIDAZOLAM HCL 2 MG/2 ML VIAL ONE (13:44)
[2020-03-08] MEDS ORDERED: FENTANYL CITRATE/PF 100MCG/2 ML INJ ONE (13:44)
--- NOTE | 2020-03-08 14:55 | NUR ---
PT BACK AFTER PROCEDURE PT IS ALERT AND ORIENTED PT VOIDED AND STRAINED URINE ,VITALS CHECKED PT RESTING ON BED BED LOW AND LOCKED CALL LIGHT IN REACH
--- NOTE | 2020-03-08 15:05 | NUR ---
PAGED AND TALKED DR DUMONT AND CLARIFIED THE POULTRY HUSBANDRY WORKER MORPHINE AND GOT THE ORDER TO REGULAR DIET
[2020-03-08] MEDS ORDERED: PHENAZOPYRIDINE HCL 100 MG TAB PO PRN (16:45)
[2020-03-08] MEDS ORDERED: B&O 60MG R/S 60 MG SUPP PR PRN (16:45)
[2020-03-08] MEDS ORDERED: KETOROLAC TROMETHAMINE 30 MG/ML VIAL ONE (17:06)
[2020-03-08] MEDS ORDERED: SEVOFLURANE INHAL SOLN 250 ML PEN BTL ONE (17:06)
[2020-03-08] MEDS ORDERED: PROPOFOL IV EMULSION 10 MG/ML 20 ML VIAL ONE (17:06)
[2020-03-08] MEDS ORDERED: ONDANSETRON HCL INJ 2MG/ML 2ML 2 MG/ML VIAL ONE (17:06)
[2020-03-08] MEDS ORDERED: DEXAMETHASONE SOD PHOS INJ 4 MG/ML VIAL ONE (17:06)
[2020-03-08] MEDS ORDERED: LIDOCAINE HCL 2% LOCAL INJ 5 ML SDV VIAL INJ ONE (17:06)
--- NOTE | 2020-03-08 18:20 | NUR ---
PT C/O CONSTIPATION PAGED AND NOTIFIED DR BENNETT GOT NEW ORDERS
--- NOTE | 2020-03-08 18:44 | NUR ---
PT RESTING ON BED BED SIDE REPORT GIVEN TO ONCOMING NURSE
[2020-03-08] MEDS: DOCUSATE SODIUM 100 MG CAP PO SCH (20:49)
[2020-03-08] MEDS: OXYBUTYNIN CHLORIDE 5 MG TAB PO SCH (21:05)
[2020-03-09] MEDS: CIPROFLOXACIN 400 MG/D5W 200ML 200 ML IV SCH (00:26)
[2020-03-09 01:40] VITALS: BP 136/79
[2020-03-09] MEDS: SODIUM CHLORIDE 0.9% 1000ML 1,000 ML IV SCH (05:24)
[2020-03-09 06:02] LABS: BASOPHILS % 0.2 % (0.0-1.0); EOSINOPHILS # (AUTO) 0.1 (0.0-0.4); EOSINOPHILS % 0.8 % (0.0-6.0); HEMATOCRIT 38.7 % (34.2-44.1); HEMOGLOBIN 12.6 g/dL (12.0-16.0); LYMPHOCYTES % 9.3 % (18.0-39.1); MEAN CORPUSCULAR HGB CONC 32.6 g/dL (31-35); MEAN CORPUSCULAR VOLUME 92.1 fL (81-99); MONOCYTES # (AUTO) 0.9 (0.2-0.8); MONOCYTES % 8.4 % (4.4-11.3); NEUTROPHILS % 80.7 % (38.7-80.0); PLATELET COUNT 267 x10e3/uL (140-360); RED CELL DISTRIBUTION WIDTH 13.2 % (11.7-14.4)
[2020-03-09 06:23] LABS: ANION GAP 12.1 mmol/L (8-16); BLOOD UREA NITROGEN 6 mg/dL (7-26); BUN/CREATININE RATIO 7 (6-25); CALCIUM 8.5 mg/dL (8.4-10.2); CARBON DIOXIDE 21 mmol/L (22-29); CHLORIDE 109 mmol/L (98-107); EST GLOMERULAR FILTRATION RATE > 60 ML/MIN (60-); GLUCOSE 108 mg/dL (74-118); POTASSIUM 4.1 mmol/L (3.5-5.1); SODIUM 138 mmol/L (136-145)
[2020-03-09 06:53] VITALS: BP 169/96
--- NOTE | 2020-03-09 07:00 | NUR ---
RECEIVED PATIENT RESTING IN BED NO S/S OF DISTRESS. BED LOW, WHEELS LOCKED, SIDE RAILS X2. CALL LIGHT IN REACH WILL CONTINUE TO MONITOR PATIENT.
[2020-03-09] MEDS: MORPHINE SULFATE 1 MG/ML 30ML PCA IV PRN (07:30)
[2020-03-09 07:58] VITALS: BP 157/86
[2020-03-09] MEDS: NICOTINE 14 MG/EA PATCH TOP SCH (08:58)
[2020-03-09] MEDS: OXYBUTYNIN CHLORIDE 5 MG TAB PO SCH (08:58)
[2020-03-09] MEDS: DOCUSATE SODIUM 100 MG CAP PO SCH (08:58)
[2020-03-09 09:13] VITALS: BP 157/86
[2020-03-09] MEDS ORDERED: DITROPAN XL5 MG PO (11:24)
[2020-03-09] MEDS ORDERED: LEVAQUIN500 MG PO (11:24)
[2020-03-09] MEDS ORDERED: TYLENOL # 31 EA PO (11:24)
--- NOTE | 2020-03-09 11:30 | NUR ---
REMOVED PATIENTS IV. CATHETER TIP INTACT AND PRESSURE DRESSING APPLIED.
[2020-03-09 11:41] VITALS: BP 142/77
--- NOTE | 2020-03-09 12:28 | NUR ---
PATIENT DISCHARGED FROM FACILITY. GATHERED ALL PERSONAL BELONGINGS, DISCHARGE INSTRUCTIONS, AND FOLLOW UP INFORMATION.
--- NOTE | 2020-03-13 08:48 | Discharge Summary ---
DISCHARGE DIAGNOSIS: Left kidney stone. HISTORY OF PRESENT ILLNESS AND HOSPITAL COURSE: See hospital chart for full details. The patient is a lady, who presented with left-sided back pain, was found to have a left kidney stone with hydronephrosis, where she was brought in, placed on IV fluids, had pain control and was seen by Dr. Beaver, who performed a stent. Post stent, the patient did well. She is able to be discharged home with p.o. medication and told to follow up with Dr. Beaver in 1 to 2 weeks and return to the emergency room if she gets worsen and to follow up with her PCP in 1 to 2 weeks as well. Please see hospital chart for full details. MD MATTEO Bender/TAMI /[id number]
--- NOTE | 2020-03-26 07:15 | Operative Report ---
DATE OF PROCEDURE: 03/08/2020 SURGEON: Albert Beaver MD PREOPERATIVE DIAGNOSES: 1. Left hydronephrosis. 2. Acute renal failure. POSTOPERATIVE DIAGNOSES: 1. Left hydronephrosis. 2. Acute renal failure. PROCEDURES PERFORMED: 1. Cystourethroscopy with bilateral ureteral catheterization and retrograde ureteropyelography (separate procedure performed for the acute renal failure). 2. Interpretation of retrograde ureteropyelography. 3. Supervision of fluoroscopy, no radiologist present. 4. Cystourethroscopy with insertion of left indwelling ureteral stent (separate procedure performed to relieve the hydronephrosis). ANESTHESIA: General. COMPLICATIONS: None. CLINICAL SUMMARY: Please refer to consultation dictation on the same hospitalization. OPERATIVE PROCEDURE IN DETAIL: Informed consent was verified. Michell Bañuelos was properly identified, taken to the operating room, placed on the cystoscopy table in supine position. Anesthesia was uneventfully begun. The patient was then carefully and gently repositioned in the dorsal lithotomy position with all pressure points well padded. Her genitalia were prepared and draped in usual sterile fashion. The cystoscope sheath with obturator in place was atraumatically inserted into the patient's urethra and bladder was drained. Panendoscopy revealed some mild trabeculations, but no tumors, no stones, and mild erythema along the trigone. A ureteral catheter was used to cannulate each ureter and retrograde ureteral pyelograms were performed. With cystoscope and fluoroscopic guidance, a left-sided indwelling ureteral stent was then placed, it was coiled in the patient's kidneys as well as the patient's bladder, the retaining suture was cut short. Interpretation of retrograde ureteropyelography contrast was instilled in retrograde fashion bilaterally. There was a left-sided hydronephrosis to the level of this impacted stone. Adequate drainage was noted on the right-hand side. The stent was in good position, coiled in the patient's kidneys as well as the patient's bladder at the end of the case. The patient's bladder was drained. The patient was uneventfully reversed from anesthesia and taken to recovery room in stable condition. There were no complications to the procedure. She tolerated the procedure well. PLAN: 1. We will order a renal scan without Lasix in order to calculate the differential function work for scarring as this obstruction seems to have been severe. 2. We will plan on a left ESWL to manage this large stone as the next step in management. MD EMELINA Spangler/TAMI /[id number]
== END 2020-03-09 12:49 | disposition home or self-care (01) | DRG 659 ==
LOC: FSED 20:00 → ERHOLD 23:13 → MED/SURG 03-06 02:04 → OBSVTOIN 03-07 10:36
PROVIDERS: ADMIT Internal Medicine; ATTEND Internal Medicine
PROC: 0T768ZZ Dilation of Right Ureter, Via Natural or Artificial Opening Endoscopic (ICD-10-PCS; 2020-03-08)
PROC: BT141ZZ Fluoroscopy of Kidneys, Ureters and Bladder using Low Osmolar Contrast (ICD-10-PCS; 2020-03-08)
PROC: 0T778DZ Dilation of Left Ureter with Intraluminal Device, Via Natural or Artificial Opening Endoscopic (ICD-10-PCS; principal; 2020-03-08 16:00)
DX: N13.2 Hydronephrosis with renal and ureteral calculous obstruction (principal); G92 Toxic encephalopathy; N17.9 Acute kidney failure, unspecified; R94.5 Abnormal results of liver function studies; F17.200 Nicotine dependence, unspecified, uncomplicated; E27.9 Disorder of adrenal gland, unspecified; I12.9 Hypertensive chronic kidney disease with stage 1 through stage 4 chronic kidney disease, or unspecified chronic kidney disease; N18.3 Chronic kidney disease, stage 3 (moderate); E66.9 Obesity, unspecified; Z68.39 Body mass index [BMI] 39.0-39.9, adult; Z11.59 Encounter for screening for other viral diseases
CPT/HCPCS: 36415; 74018; 74177; 74420; 80048; 80053; 80076; 81003; 81025; 82553; 83970; 84484; 84550; 85025; 87086; 93005; 96374; 96375; 96376; 99284; C1758; C2617; G0378; J1100; J1170; J1885; J2001; J2250; J2270; J2405; J3010; J3411; J7030; Q9967; U0002

== ENCOUNTER → 2020-03-24 | Outpatient (CLI) | payer OTHER ==
[~2020-03-24] MED LIST changes: +DITROPAN XL5 MG PO; +FUROSEMIDE40 MG PO; +LEVAQUIN500 MG PO; +PROVENTIL HFA6.7 GM INH; +TYLENOL # 31 EA PO
--- NOTE | 2020-03-24 16:46 | Diagnostic Imaging Report ---
Exam: KUB - 2 views Indication: Renal calculus Comparison: CT abdomen and pelvis of 03/05/2020, KUB of 03/07/2020 Findings: 6 mm left lower pole renal calculus. Interval placement of left internal nephroureteral stent with proximal and distal loops were formed. No radiographically apparent right urinary calculi. Phleboliths in the pelvis. No acute osseous injury. Impression: Interval placement of left internal nephroureteral stent. 6 mm left lower pole renal calculus. Signed by: Parminder Padgett MD on 03/24/2020 4:43 PM
== END ==
LOC: RAD 16:06
PROVIDERS: ATTEND Urology
DX: N20.0 Calculus of kidney (principal)
CPT/HCPCS: 74018

== ENCOUNTER → 2020-03-25 | Outpatient (CLI) | payer OTHER ==
--- NOTE | 2020-03-25 20:46 | Diagnostic Imaging Report ---
Renal Scan Reason for exam: Renal calculi. Left ureteral stent placed 4 days ago. Radiopharmaceutical: Tc-99m MAG3 9.8 mCi IV RAC Report: After administration of the radiopharmaceutical, dynamic images of the kidneys were obtained through 40 minutes. LEFT KIDNEY: Perfusion is prompt. The left kidney has a normal reniform shape. Extraction of tracer from the blood pool is normal. Clearance of tracer from the renal parenchyma is prompt. The pelvicaliceal system is not dilated. Physiologic pooling of tracer is seen within the pelvicaliceal system. Drainage of tracer from the pelvicaliceal system is prompt. No significant stasis of tracer is seen in the left ureter. RIGHT KIDNEY: Perfusion is prompt. The kidney has a normal reniform shape. Extraction of tracer from the blood pool is normal. Clearance of tracer from the renal parenchyma is prompt. The pelvicaliceal system is very mildly dilated, predominantly the renal pelvis and an upper pole calyx. Some increased pooling of tracer is seen within the renal pelvis and an upper pole calyx. Drainage of tracer from the pelvicaliceal study is prompt and adequate. No significant stasis of tracer is seen in the right ureter. DIFFERENTIAL RENAL FUNCTION: Left kidney 49% and right kidney 51%. Impression: 1. The left kidney has generally normal function. No hydronephrosis is present. No obstruction is suspected. 2. The right kidney has generally normal function. Very mild hydronephrosis is present. No obstruction is suspected. 3. The differential renal function is preserved. Signed by: Dr. Yakelin Montemayor M.D. on 03/25/2020 8:43 PM
== END ==
LOC: NM 14:45
PROVIDERS: ATTEND Urology
DX: N20.1 Calculus of ureter (principal); N13.30 Unspecified hydronephrosis
CPT/HCPCS: 78707; A9562

== ENCOUNTER → 2020-04-14 | Day surgery (SDC) | payer OTHER ==
[2020-04-09 16:32] LABS: ANION GAP 13.8 mmol/L (8-16); BLOOD UREA NITROGEN 9 mg/dL (7-26); BUN/CREATININE RATIO 11 (6-25); CALCIUM 8.9 mg/dL (8.4-10.2); CARBON DIOXIDE 27 mmol/L (22-29); CHLORIDE 101 mmol/L (98-107); CREATININE, SERUM 0.79 mg/dL (0.57-1.11); EST GLOMERULAR FILTRATION RATE > 60 ML/MIN (60-); GLUCOSE 109 mg/dL (74-118); POTASSIUM 3.8 mmol/L (3.5-5.1); SODIUM 138 mmol/L (136-145)
[~2020-04-14] MED LIST changes: +AZO BLADDER CO300 MG PO; +B&O 60MG R/S 60 MG SUPP PR ONE; +CEFTRIAXONE SOD 1 GM/NS 50 ML 50 ML IV ONE; +COLACE100 MG PO; +DEXAMETHASONE SOD PHOS INJ 4 MG/ML VIAL ONE; +FENTANYL CITRATE/PF 100MCG/2 ML INJ ONE; +IOPAMIDOL 300MG/ML 50ML INFUS..BTL IV ONE; +LIDOCAINE HCL 2% LOCAL INJ 5 ML SDV VIAL INJ ONE; +MIDAZOLAM HCL 2 MG/2 ML VIAL ONE; +NASOCORT; +ONDANSETRON HCL INJ 2MG/ML 2ML 2 MG/ML VIAL ONE; +PROPOFOL IV EMULSION 10 MG/ML 20 ML VIAL ONE; +SEVOFLURANE INHAL SOLN 250 ML PEN BTL ONE
[2020-04-14 10:57] VITALS: BP 145/85
== END | disposition home or self-care (01) ==
LOC: OR 06:40
PROVIDERS: ATTEND Urology
DX: N20.0 Calculus of kidney (principal); Z88.1 Allergy status to other antibiotic agents; Z91.011 Allergy to milk products; Z88.0 Allergy status to penicillin; Z88.8 Allergy status to other drugs, medicaments and biological substances; Z91.048 Other nonmedicinal substance allergy status; Z01.812 Encounter for preprocedural laboratory examination; Z01.818 Encounter for other preprocedural examination; Z11.59 Encounter for screening for other viral diseases; E66.9 Obesity, unspecified; F41.9 Anxiety disorder, unspecified; Z72.0 Tobacco use; I10 Essential (primary) hypertension; E78.00 Pure hypercholesterolemia, unspecified; Z96.0 Presence of urogenital implants
CPT/HCPCS: 36415; 50590; 71046; 74018; 80048; 81025; J0696; J1100; J2001; J2405; J2704; J3010; U0002; J2250

== ENCOUNTER → 2020-05-28 | Day surgery (SDC) | payer OTHER ==
[2020-05-25 15:34] LABS: BASOPHILS % 0.6 % (0.0-1.0); EOSINOPHILS # (AUTO) 0.3 (0.0-0.4); EOSINOPHILS % 2.4 % (0.0-6.0); HEMATOCRIT 46.5 % (34.2-44.1); HEMOGLOBIN 15.6 g/dL (12.0-16.0); LYMPHOCYTES # (AUTO) 2.8 (1.0-3.2); MEAN CORPUSCULAR HGB CONC 33.5 g/dL (31-35); MEAN CORPUSCULAR VOLUME 89.4 fL (81-99); MONOCYTES % 7.5 % (4.4-11.3); NEUTROPHILS # (AUTO) 9.6 (2.1-6.9); NEUTROPHILS % 68.7 % (38.7-80.0); PLATELET COUNT 284 x10e3/uL (140-360); RED CELL DISTRIBUTION WIDTH 13.8 % (11.7-14.4)
[2020-05-25 15:35] LABS: BASOPHILS # (AUTO) 0.1 (0.0-0.1)
[2020-05-25 15:49] LABS: ANION GAP 15.2 mmol/L (8-16); BLOOD UREA NITROGEN 7 mg/dL (7-26); BUN/CREATININE RATIO 9 (6-25); CALCIUM 9.2 mg/dL (8.4-10.2); CARBON DIOXIDE 27 mmol/L (22-29); CHLORIDE 100 mmol/L (98-107); CREATININE, SERUM 0.79 mg/dL (0.57-1.11); EST GLOMERULAR FILTRATION RATE > 60 ML/MIN (60-); GLUCOSE 94 mg/dL (74-118); POTASSIUM 4.2 mmol/L (3.5-5.1); SODIUM 138 mmol/L (136-145)
[~2020-05-28] MED LIST changes: -CEFTRIAXONE SOD 1 GM/NS 50 ML 50 ML IV ONE; +GENTAMICIN 80MG/NS 100 ML 200 ML IV ONE; +LIDOCAINE HCL 2% JELLY 5 ML TUBE ONE
[2020-05-28 09:20] VITALS: BP 123/70
== END | disposition home or self-care (01) ==
LOC: OR 05:49
PROVIDERS: ATTEND Urology
DX: N20.0 Calculus of kidney (principal); Z46.6 Encounter for fitting and adjustment of urinary device; N81.10 Cystocele, unspecified; N81.6 Rectocele; N36.41 Hypermobility of urethra; N28.89 Other specified disorders of kidney and ureter; D44.10 Neoplasm of uncertain behavior of unspecified adrenal gland; E66.9 Obesity, unspecified; M54.9 Dorsalgia, unspecified; I10 Essential (primary) hypertension; K21.9 Gastro-esophageal reflux disease without esophagitis; K58.9 Irritable bowel syndrome, unspecified; K76.0 Fatty (change of) liver, not elsewhere classified; R39.15 Urgency of urination; F41.9 Anxiety disorder, unspecified; F17.210 Nicotine dependence, cigarettes, uncomplicated; Z88.3 Allergy status to other anti-infective agents; Z88.0 Allergy status to penicillin; Z88.1 Allergy status to other antibiotic agents; Z91.012 Allergy to eggs; Z88.8 Allergy status to other drugs, medicaments and biological substances; Z91.048 Other nonmedicinal substance allergy status; Z79.82 Long term (current) use of aspirin; Z68.35 Body mass index [BMI] 35.0-35.9, adult
CPT/HCPCS: 36415; 52352; 74018; 74420; 80048; 81025; 85025; 88300; C1769; J1100; J1580; J2001 ×2; J2250; J2405; J2704; J3010; Q9967; U0002

== ENCOUNTER → 2020-06-24 | Day surgery (SDC) | payer OTHER ==
[~2020-06-24] MED LIST changes: -B&O 60MG R/S 60 MG SUPP PR ONE; -DEXAMETHASONE SOD PHOS INJ 4 MG/ML VIAL ONE; -GENTAMICIN 80MG/NS 100 ML 200 ML IV ONE; +GLUCAGON FOR INJ 1 MG VIAL ONE; +HYOSCYAMINE 0.125 MG TAB ONE; +HYOSCYAMINE SULFATE 0.5 MG/ML INJ ONE; -IOPAMIDOL 300MG/ML 50ML INFUS..BTL IV ONE; -LIDOCAINE HCL 2% JELLY 5 ML TUBE ONE; -ONDANSETRON HCL INJ 2MG/ML 2ML 2 MG/ML VIAL ONE; -SEVOFLURANE INHAL SOLN 250 ML PEN BTL ONE; +ZYRTEC10 M3 PO
[2020-06-24 11:55] VITALS: BP 145/87
[2020-06-24 13:41] LABS: WBC,FECAL (FECAL LACTOFERRIN) NEGATIVE (NEGATIVE)
[2020-06-25 12:46] LABS: C DIFFICILE TOXIN A&B AMP PROB NEGATIVE (NEGATIVE)
== END | disposition home or self-care (01) ==
LOC: OR 08:48
PROVIDERS: ATTEND Internal Medicine Gastroenterology
DX: K51.50 Left sided colitis without complications (principal); K63.5 Polyp of colon; K62.1 Rectal polyp; K64.8 Other hemorrhoids; I10 Essential (primary) hypertension; K21.9 Gastro-esophageal reflux disease without esophagitis; K76.0 Fatty (change of) liver, not elsewhere classified; N20.0 Calculus of kidney; F41.9 Anxiety disorder, unspecified; Z88.1 Allergy status to other antibiotic agents; Z88.0 Allergy status to penicillin; Z88.8 Allergy status to other drugs, medicaments and biological substances; Z01.810 Encounter for preprocedural cardiovascular examination; Z01.812 Encounter for preprocedural laboratory examination; Z20.828 Contact with and (suspected) exposure to other viral communicable diseases
CPT/HCPCS: 45380; 45384; 45385; 81025; 83630; 83993; 87045; 87177; 87328; 87493; 93005; J1610; J1980; J2001; J2250; J2704; J3010; U0002; 45378

== ENCOUNTER 2020-08-13 10:36 | Observation (INO) | payer OTHER ==
[~2020-08-13] VITALS: Ht 160 cm; Wt 99.1 kg
[~2020-08-13 10:36] MED LIST changes: -FENTANYL CITRATE/PF 100MCG/2 ML INJ ONE; -GLUCAGON FOR INJ 1 MG VIAL ONE; -HYOSCYAMINE 0.125 MG TAB ONE; -HYOSCYAMINE SULFATE 0.5 MG/ML INJ ONE; -LIDOCAINE HCL 2% LOCAL INJ 5 ML SDV VIAL INJ ONE; -MIDAZOLAM HCL 2 MG/2 ML VIAL ONE; -PROPOFOL IV EMULSION 10 MG/ML 20 ML VIAL ONE
[2020-08-13] MEDS ORDERED: ONDANSETRON HCL INJ 2MG/ML 2ML 2 MG/ML VIAL IV STA ×2 (11:14→13:57)
[2020-08-13] MEDS ORDERED: SODIUM CHLORIDE 0.9% 1000ML 1,000 ML IV SCH (11:15)
[2020-08-13] MEDS ORDERED: MAGNESIUM250 MG (11:45)
[2020-08-13] MEDS ORDERED: FIBER TABS625 MG PO (11:45)
[2020-08-13] MEDS ORDERED: LISINOPRIL2.5 MG PO (11:45)
[2020-08-13] MEDS: SODIUM CHLORIDE 0.9% 1000ML 1,000 ML IV SCH ×3 (13:05→21:47)
[2020-08-13] MEDS ORDERED: SODIUM CHLORIDE 0.9% 1000ML 1,000 ML ONE (13:10)
[2020-08-13] MEDS ORDERED: KETOROLAC TROMETHAMINE 30 MG/ML VIAL IV STA (13:57)
[2020-08-13] MEDS ORDERED: KETOROLAC TROMETHAMINE 30 MG/ML VIAL ONE (14:29)
[2020-08-13] MEDS ORDERED: ONDANSETRON HCL INJ 2MG/ML 2ML 2 MG/ML VIAL ONE (14:29)
[2020-08-13] MEDS ORDERED: LEVOFLOXACIN 750MG/D5W 150ML 150 ML IV ONE ×2 (15:30→16:02)
[2020-08-13] MEDS ORDERED: METRONIDAZOLE 500MG/NS 100ML 100 ML IV ONE (16:15)
[2020-08-13] MEDS ORDERED: ONDANSETRON HCL INJ 2MG/ML 2ML 2 MG/ML VIAL IV PRN (17:00)
[2020-08-13] MEDS ORDERED: MORPHINE SULFATE INJ 4 MG/ML INJ 1ML IV PRN (17:15)
[2020-08-13] MEDS ORDERED: MORPHINE SULFATE INJ 2 MG/ML SYR IV PRN (17:50)
[2020-08-13 18:10] VITALS: BP 133/87
[2020-08-13] MEDS ORDERED: FUROSEMIDE20 MG PO (18:27)
[2020-08-13] MEDS ORDERED: DICYCLOMINE HCL10 MG PO (18:28)
[2020-08-13 18:42] VITALS: BP 138/51
[2020-08-13 18:46] VITALS: BP 138/51
[2020-08-13 18:48] VITALS: BP 138/51
[2020-08-13] MEDS ORDERED: GADOBENATE DIMEGLUMINE 1 ML IV ONE (19:24)
[2020-08-13] MEDS ORDERED: SODIUM CHLORIDE 0.9% 50ML 50 ML ONE (19:24)
[2020-08-13] MEDS ORDERED: HYDROMORPHONE 1MG/1ML INJ IV PRN (19:30)
[2020-08-13 20:00] VITALS: BP 138/51
[2020-08-13 20:15] VITALS: BP 126/77
[2020-08-13] MEDS: NICOTINE 21 MG/EA PATCH TOP SCH (21:50)
[2020-08-13] MEDS: METRONIDAZOLE 500MG/NS 100ML 100 ML IV SCH (21:50)
[2020-08-14] VITALS (9 sets, daily range): BP systolic 118–151; BP diastolic 81–102
[2020-08-14] MEDS ORDERED: PANTOPRAZOLE 40 MG 10ML VIAL IV SCH (00:15)
[2020-08-14] MEDS ORDERED: POTASSIUM CHLORIDE 20 MEQ TAB CR PO PRN (01:15)
[2020-08-14] MEDS ORDERED: ONDANSETRON HCL INJ 2MG/ML 2ML 2 MG/ML VIAL IV PRN (01:15)
[2020-08-14] MEDS ORDERED: BENZONATATE 100 MG CAP PO PRN (01:15)
[2020-08-14] MEDS ORDERED: LIDOCAINE 4% PATCH TP PRN (01:15)
[2020-08-14] MEDS ORDERED: HYDRALAZINE HCL 20 MG/ML VIAL IV PRN (01:15)
[2020-08-14] MEDS ORDERED: MELATONIN 5 MG TABLET PO PRN (01:15)
[2020-08-14] MEDS ORDERED: POLYETHYLENE GLYCOL 3350 17 GM PACK PO PRN (01:15)
[2020-08-14] MEDS ORDERED: ACETAMINOPHEN 325 MG TAB PO PRN (01:15)
[2020-08-14] MEDS ORDERED: DIPHENHYDRAMINE HCL 25 MG CAP PO PRN (01:15)
[2020-08-14] MEDS ORDERED: DOCUSATE SODIUM 100 MG CAP PO PRN (01:15)
[2020-08-14] MEDS ORDERED: MORPHINE SULFATE INJ 2 MG/ML SYR IV PRN (01:15)
[2020-08-14] MEDS ORDERED: DEXTROSE 50% SYRINGE 50 ML IV PRN (01:15)
[2020-08-14] MEDS ORDERED: CHLORASEPTIC SPRAY 177 ML BTL MM PRN (01:15)
[2020-08-14] MEDS ORDERED: SIMETHICONE 80 MG CHEW PO PRN (01:15)
[2020-08-14] MEDS: PANTOPRAZOLE 40 MG 10ML VIAL IV SCH ×2 (04:44→18:49)
[2020-08-14] MEDS: METRONIDAZOLE 500MG/NS 100ML 100 ML IV SCH ×3 (04:44→20:20)
[2020-08-14] MEDS: SODIUM CHLORIDE 0.9% 1000ML 1,000 ML IV SCH ×3 (04:44→17:00)
[2020-08-14] MEDS ORDERED: SODIUM CHLORIDE 0.9% 50ML 50 ML ONE (04:48)
[2020-08-14 06:17] LABS: BASOPHILS % 0.5 % (0.0-1.0); EOSINOPHILS # (AUTO) 0.2 (0.0-0.4); EOSINOPHILS % 2.6 % (0.0-6.0); HEMATOCRIT 41.3 % (34.2-44.1); LYMPHOCYTES # (AUTO) 1.2 (1.0-3.2); LYMPHOCYTES % 13.5 % (18.0-39.1); MEAN CORPUSCULAR HGB CONC 33.9 g/dL (31-35); MEAN CORPUSCULAR VOLUME 91.4 fL (81-99); MONOCYTES # (AUTO) 0.9 (0.2-0.8); MONOCYTES % 9.8 % (4.4-11.3); NEUTROPHILS # (AUTO) 6.3 (2.1-6.9); NEUTROPHILS % 72.7 % (38.7-80.0); PLATELET COUNT 204 x10e3/uL (140-360); RED BLOOD COUNT 4.52 x10e6/uL (3.6-5.1); RED CELL DISTRIBUTION WIDTH 13.7 % (11.7-14.4)
[2020-08-14 06:28] LABS: ALANINE AMINOTRANSFERASE 32 IU/L (0-55); ALBUMIN 2.6 g/dL (3.5-5.0); ALBUMIN/GLOBULIN RATIO 0.8 (0.8-2.0); ALKALINE PHOSPHATASE 48 IU/L (40-150); ANION GAP 12.4 mmol/L (8-16); BLOOD UREA NITROGEN 7 mg/dL (7-26); BUN/CREATININE RATIO 9 (6-25); CALCIUM 7.1 mg/dL (8.4-10.2); CARBON DIOXIDE 22 mmol/L (22-29); CHLORIDE 105 mmol/L (98-107); CREATININE, SERUM 0.77 mg/dL (0.57-1.11); EST GLOMERULAR FILTRATION RATE > 60 ML/MIN (60-); GLUCOSE 92 mg/dL (74-118); MAGNESIUM 1.2 MG/DL (1.3-2.1); POTASSIUM 3.4 mmol/L (3.5-5.1); SODIUM 136 mmol/L (136-145)
[2020-08-14] MEDS ORDERED: PANTOPRAZOLE SOD 40 MG TABEC PO SCH (07:30)
[2020-08-14] MEDS: NICOTINE 21 MG/EA PATCH TOP SCH (09:57)
[2020-08-14] MEDS: POTASSIUM CHLORIDE 10MEQ/100ML 400 ML IV ONE ×2 (12:32→14:48)
[2020-08-14] MEDS: HYDROCODONE/APAP 5MG-325MG TAB PO PRN ×2 (15:05→21:24)
[2020-08-14] MEDS ORDERED: LEVOFLOXACIN 750MG/D5W 150ML 150 ML IV SCH (16:00)
[2020-08-15] VITALS: BP 150/97
[2020-08-15] MEDS: SODIUM CHLORIDE 0.9% 1000ML 1,000 ML IV SCH ×2 (02:30→09:00)
[2020-08-15 04:00] VITALS: BP 132/83
[2020-08-15] MEDS: METRONIDAZOLE 500MG/NS 100ML 100 ML IV SCH (04:22)
[2020-08-15] MEDS: PANTOPRAZOLE 40 MG 10ML VIAL IV SCH (05:32)
[2020-08-15] MEDS: HYDROCODONE/APAP 5MG-325MG TAB PO PRN (05:32)
[2020-08-15 06:28] LABS: BASOPHILS % 0.3 % (0.0-1.0); EOSINOPHILS # (AUTO) 0.2 (0.0-0.4); EOSINOPHILS % 2.8 % (0.0-6.0); HEMOGLOBIN 13.6 g/dL (12.0-16.0); LYMPHOCYTES # (AUTO) 1.5 (1.0-3.2); LYMPHOCYTES % 21.1 % (18.0-39.1); MEAN CORPUSCULAR HEMOGLOBIN 30.2 pg (28-32); MEAN CORPUSCULAR HGB CONC 33.2 g/dL (31-35); MEAN CORPUSCULAR VOLUME 90.9 fL (81-99); MONOCYTES # (AUTO) 0.9 (0.2-0.8); MONOCYTES % 13.1 % (4.4-11.3); NEUTROPHILS # (AUTO) 4.5 (2.1-6.9); NEUTROPHILS % 62.3 % (38.7-80.0); PLATELET COUNT 209 x10e3/uL (140-360); RED BLOOD COUNT 4.51 x10e6/uL (3.6-5.1); RED CELL DISTRIBUTION WIDTH 13.6 % (11.7-14.4)
[2020-08-15 06:47] LABS: ALANINE AMINOTRANSFERASE 43 IU/L (0-55); ALBUMIN 2.8 g/dL (3.5-5.0); ALBUMIN/GLOBULIN RATIO 0.9 (0.8-2.0); ALKALINE PHOSPHATASE 54 IU/L (40-150); ANION GAP 12.8 mmol/L (8-16); BLOOD UREA NITROGEN < 5 mg/dL (7-26); CALCIUM 7.5 mg/dL (8.4-10.2); CARBON DIOXIDE 22 mmol/L (22-29); CHLORIDE 107 mmol/L (98-107); CREATININE, SERUM 0.72 mg/dL (0.57-1.11); EST GLOMERULAR FILTRATION RATE > 60 ML/MIN (60-); GLUCOSE 97 mg/dL (74-118); POTASSIUM 3.8 mmol/L (3.5-5.1); SODIUM 138 mmol/L (136-145)
[2020-08-15 07:00] LABS: BUN/CREATININE RATIO 7 (6-25)
[2020-08-15 08:00] VITALS: BP 127/77
[2020-08-15] MEDS ORDERED: OXYBUTYNIN CHLORIDE XL 5 MG TAB PO PRN (08:15)
[2020-08-15] MEDS ORDERED: KCL 20 MEQ PACKET/ ORAL SOLN PO SCH (09:00)
[2020-08-15] MEDS ORDERED: HYDROXYCHLOROQUINE SULFATE 200 MG TAB PO SCH (09:00)
[2020-08-15] MEDS ORDERED: LISINOPRIL 2.5 MG TAB PO SCH (09:00)
[2020-08-15 09:42] VITALS: BP 127/77
[2020-08-15] MEDS: NICOTINE 21 MG/EA PATCH TOP SCH (10:13)
[2020-08-15 11:56] VITALS: BP 151/97
[2020-08-16] MEDS ORDERED: MUCINEX600 MG PO (06:44)
== END 2020-08-15 15:32 | disposition home or self-care (01) ==
LOC: FSED 11:14 → ERHOLD 16:59 → MED/SURG 17:53
PROVIDERS: ADMIT Internal Medicine; ATTEND Internal Medicine
DX: K81.1 Chronic cholecystitis (principal); K58.9 Irritable bowel syndrome, unspecified; K76.0 Fatty (change of) liver, not elsewhere classified; N39.0 Urinary tract infection, site not specified; N20.0 Calculus of kidney; K21.9 Gastro-esophageal reflux disease without esophagitis; E86.0 Dehydration; E86.1 Hypovolemia; D35.02 Benign neoplasm of left adrenal gland; I10 Essential (primary) hypertension; F17.210 Nicotine dependence, cigarettes, uncomplicated; Z88.1 Allergy status to other antibiotic agents; Z91.012 Allergy to eggs; Z91.011 Allergy to milk products; Z88.0 Allergy status to penicillin; Z88.8 Allergy status to other drugs, medicaments and biological substances; Z91.048 Other nonmedicinal substance allergy status; Z20.822 Contact with and (suspected) exposure to COVID-19
CPT/HCPCS: 36415 ×2; 74176; 74183; 76705; 78227; 80053 ×3; 81003; 81025; 83735; 85025 ×3; 96374; 96375; 99284; A9537; A9577; C9113 ×2; G0378 ×3; J1170; J1885; J2405; J3480; J7030 ×3; U0002

== ENCOUNTER → 2020-08-16 | Day surgery (SDC) | payer OTHER ==
[~2020-08-16] MED LIST changes: +ALBUTEROL/IPRATROPIUM 3 ML NEB ONE; +BUPIVACAINE 0.25% 30ML SDV ONE; +DEXAMETHASONE SOD PHOS INJ 4 MG/ML VIAL ONE; +FENTANYL CITRATE/PF 100MCG/2 ML INJ ONE; +FIBER TABS625 MG PO; +FUROSEMIDE20 MG PO; +GLYCOPYRROLATE INJ 0.2 MG/ML VIAL ONE; +HYDROCODONE/APAP 7.5MG-325MG 1 EA TAB ONE; +LIDOCAINE 1% W/EPINEPHRINE 20 ML VIAL ONE; +LIDOCAINE HCL 2% LOCAL INJ 5 ML SDV VIAL INJ ONE; +LISINOPRIL2.5 MG PO; +MAGNESIUM250 MG; +MIDAZOLAM HCL 2 MG/2 ML VIAL ONE; +MUCINEX600 MG PO; +NEOSTIGMINE 1 MG/ML 10ML VIAL ONE; +ONDANSETRON HCL INJ 2MG/ML 2ML 2 MG/ML VIAL ONE; +PROPOFOL IV EMULSION 10 MG/ML 20 ML VIAL ONE; +ROCURONIUM BROMIDE 10 MG/ML 5ML VIAL IV ONE; +SEVOFLURANE INHAL SOLN 250 ML PEN BTL ONE
[2020-08-16 07:18] LABS: CLARITY,URINE CLEAR (CLEAR); COLOR,URINE YELLOW (YELLOW); KETONES,URINE 1+ (NEGATIVE); LEUKOCYTE ESTERASE ,URINE NEGATIVE (NEGATIVE); NITRITE,URINE NEGATIVE (NEGATIVE); PROTEIN,URINE DIPSTICK TRACE (NEGATIVE); URINE UROBILINOGEN 0.2 mg/dL (0.2 - 1)
[2020-08-16 14:55] VITALS: BP 132/74
== END | disposition home or self-care (01) ==
LOC: OR 05:28
PROVIDERS: ATTEND Surgery
DX: K81.1 Chronic cholecystitis (principal); K76.0 Fatty (change of) liver, not elsewhere classified; J45.909 Unspecified asthma, uncomplicated; I10 Essential (primary) hypertension; K21.9 Gastro-esophageal reflux disease without esophagitis; N20.0 Calculus of kidney; Z88.1 Allergy status to other antibiotic agents; Z88.0 Allergy status to penicillin
CPT/HCPCS: 47562; 81003; 88304; J1100; J2001; J2250; J2405; J2704; J2710; J3010

== ENCOUNTER → 2020-11-02 | Outpatient (CLI) | payer OTHER ==
[~2020-11-02] MED LIST changes: -ALBUTEROL/IPRATROPIUM 3 ML NEB ONE; -BUPIVACAINE 0.25% 30ML SDV ONE; -DEXAMETHASONE SOD PHOS INJ 4 MG/ML VIAL ONE; -FENTANYL CITRATE/PF 100MCG/2 ML INJ ONE; -GLYCOPYRROLATE INJ 0.2 MG/ML VIAL ONE; -HYDROCODONE/APAP 7.5MG-325MG 1 EA TAB ONE; +IOPAMIDOL 370 MG/ML 200 ML INFUS..BTL INJ ONE; -LIDOCAINE 1% W/EPINEPHRINE 20 ML VIAL ONE; -LIDOCAINE HCL 2% LOCAL INJ 5 ML SDV VIAL INJ ONE; -MIDAZOLAM HCL 2 MG/2 ML VIAL ONE; -NEOSTIGMINE 1 MG/ML 10ML VIAL ONE; -ONDANSETRON HCL INJ 2MG/ML 2ML 2 MG/ML VIAL ONE; -PROPOFOL IV EMULSION 10 MG/ML 20 ML VIAL ONE; -ROCURONIUM BROMIDE 10 MG/ML 5ML VIAL IV ONE; -SEVOFLURANE INHAL SOLN 250 ML PEN BTL ONE; +SODIUM CHLORIDE 0.9% 50ML 50 ML ONE
== END ==
LOC: CT 15:37
PROVIDERS: ATTEND Internal Medicine Gastroenterology
DX: R10.10 Upper abdominal pain, unspecified (principal)
CPT/HCPCS: 74160; Q9967

== ENCOUNTER 2021-03-03 06:36 | Observation (INO) | payer OTHER ==
[2021-03-01 13:09] LABS: BASOPHILS % 0.2 % (0.0-1.0); EOSINOPHILS # (AUTO) 0.4 (0.0-0.4); EOSINOPHILS % 2.5 % (0.0-6.0); HEMATOCRIT 43.7 % (34.2-44.1); HEMOGLOBIN 15.1 g/dL (12.0-16.0); LYMPHOCYTES # (AUTO) 2.7 (1.0-3.2); LYMPHOCYTES % 16.2 % (18.0-39.1); MEAN CORPUSCULAR HEMOGLOBIN 31.8 pg (28-32); MEAN CORPUSCULAR HGB CONC 34.6 g/dL (31-35); MONOCYTES % 5.9 % (4.4-11.3); NEUTROPHILS # (AUTO) 12.5 (2.1-6.9); NEUTROPHILS % 74.1 % (38.7-80.0); PLATELET COUNT 277 x10e3/uL (140-360); RED BLOOD COUNT 4.75 x10e6/uL (3.6-5.1); RED CELL DISTRIBUTION WIDTH 13.5 % (11.7-14.4)
[2021-03-01 13:19] LABS: INR 0.86; PROTHROMBIN TIME 11.9 seconds (11.9-14.5)
[2021-03-01 13:20] LABS: PARTIAL THROMBOPLASTIN TIME 29.2 seconds (23.8-35.5)
[2021-03-01 13:25] LABS: ANION GAP 16.8 mmol/L (8-16); CALCIUM 8.9 mg/dL (8.4-10.2); CREATININE, SERUM 0.77 mg/dL (0.57-1.11); POTASSIUM 3.8 mmol/L (3.5-5.1)
[~2021-03-03] VITALS: Ht 160 cm; Wt 94.3 kg
[~2021-03-03 06:36] MED LIST changes: +CIPRO500 MG PO; +COLESTIPOL HCL1 GM PO; +FIBER GUMMIES-1 EACH; -IOPAMIDOL 370 MG/ML 200 ML INFUS..BTL INJ ONE; -SODIUM CHLORIDE 0.9% 50ML 50 ML ONE; +TRILOGY
[2021-03-03] MEDS ORDERED: Vancomycin IV 1 GM VIAL ONE ×2 (06:45→08:13)
[2021-03-03] MEDS ORDERED: THROMBIN FOR SOLN 5,000 UNIT VIAL ONE (06:45)
[2021-03-03] MEDS ORDERED: LIDOCAINE 1% W/EPINEPHRINE 20 ML VIAL ONE (06:45)
[2021-03-03] MEDS ORDERED: SODIUM CHLORIDE 0.9% 250ML 250 ML ONE (08:13)
[2021-03-03] MEDS ORDERED: TRELEGY ELLIPT1 EACH INH (08:15)
[2021-03-03] MEDS ORDERED: ACETAMINOPHEN 325 MG TAB PO PRN (11:00)
[2021-03-03] MEDS ORDERED: PROMETHAZINE HCL (IM) 25 MG/ML VIAL IM PRN (11:00)
[2021-03-03] MEDS ORDERED: ACETAMINOPHEN/CODEINE 300MG - 30MG TAB PO PRN (11:00)
[2021-03-03] MEDS ORDERED: FUROSEMIDE 20 MG TAB PO PRN (11:00)
[2021-03-03] MEDS ORDERED: ALBUTEROL SULFATE HFA 8GM INHALATION AEROSOL INH PRN (11:00)
[2021-03-03] MEDS ORDERED: MORPHINE SULFATE 5 MG/ML VIAL IM PRN (11:00)
[2021-03-03] MEDS ORDERED: MAGNESIUM/ALUMINUM/SIMETHICONE 30 ML UDC PO PRN (11:00)
[2021-03-03] MEDS ORDERED: HYDROCODON-ACE1 EA12 PO (11:02)
[2021-03-03] MEDS ORDERED: FENTANYL CITRATE/PF 100MCG/2 ML INJ ONE (11:35)
[2021-03-03 12:15] VITALS: BP 157/79
[2021-03-03 12:20] VITALS: BP 157/79
[2021-03-03] MEDS: OXYCODONE/ACETAMINOPHEN 5-325 1 EACH TABLET PO PRN ×3 (14:06→22:43)
[2021-03-03] MEDS: DICYCLOMINE HCL 10 MG CAP PO SCH ×2 (14:08→20:44)
[2021-03-03] MEDS: Cefazolin 1 GM in SODIUM CHLORIDE 0.9% 50ML 50 ML IV SCH ×2 (14:09→21:18)
[2021-03-03] MEDS: LACTATED RINGER'S 1,000 ML IV SCH ×2 (14:11→19:20)
[2021-03-03 15:43] VITALS: BP 156/80
[2021-03-03] MEDS: HYDROMORPHONE 2MG/ML 2 MG/ML ML IV PRN ×2 (16:01→20:30)
[2021-03-03] MEDS: ONDANSETRON HCL INJ 2MG/ML 2ML 2 MG/ML VIAL IV PRN ×2 (16:01→20:30)
[2021-03-03] MEDS ORDERED: ROCURONIUM BROMIDE 10 MG/ML 5ML VIAL IV ONE (16:25)
[2021-03-03] MEDS ORDERED: LIDOCAINE HCL 2% LOCAL INJ 5 ML SDV VIAL INJ ONE (16:25)
[2021-03-03] MEDS ORDERED: DEXAMETHASONE SOD PHOS INJ 4 MG/ML VIAL ONE (16:25)
[2021-03-03] MEDS ORDERED: POVIDONE IODINE 0.05% 0.05 % ML PO ONE (16:25)
[2021-03-03] MEDS ORDERED: KETOROLAC TROMETHAMINE 30 MG/ML VIAL ONE (16:25)
[2021-03-03] MEDS ORDERED: ONDANSETRON HCL INJ 2MG/ML 2ML 2 MG/ML VIAL ONE (16:25)
[2021-03-03] MEDS ORDERED: PROPOFOL IV EMULSION 10 MG/ML 20 ML VIAL ONE (16:25)
[2021-03-03] MEDS ORDERED: SEVOFLURANE INHAL SOLN 250 ML PEN BTL ONE (16:25)
[2021-03-03] MEDS ORDERED: LABETALOL HCL 5 MG/ML 20ML VIAL ONE (16:25)
[2021-03-03 20:00] VITALS: BP 142/91
[2021-03-03 20:30] VITALS: BP 156/80
[2021-03-03] MEDS ORDERED: ZOLPIDEM TARTRATE 5 MG TAB PO PRN (21:00)
[2021-03-03] MEDS: CARISOPRODOL 350 MG TAB PO PRN (22:43)
[2021-03-04] VITALS: BP 134/88
[2021-03-04] MEDS: ONDANSETRON HCL INJ 2MG/ML 2ML 2 MG/ML VIAL IV PRN ×2 (01:00→06:30)
[2021-03-04] MEDS: HYDROMORPHONE 2MG/ML 2 MG/ML ML IV PRN ×2 (01:00→06:30)
[2021-03-04] MEDS: OXYCODONE/ACETAMINOPHEN 5-325 1 EACH TABLET PO PRN ×2 (03:15→08:42)
[2021-03-04] MEDS: CARISOPRODOL 350 MG TAB PO PRN ×2 (03:15→08:41)
[2021-03-04] MEDS: LACTATED RINGER'S 1,000 ML IV SCH (03:18)
[2021-03-04 04:00] VITALS: BP 135/83
[2021-03-04] MEDS: Cefazolin 1 GM in SODIUM CHLORIDE 0.9% 50ML 50 ML IV SCH (06:38)
[2021-03-04 07:42] VITALS: BP 120/79
[2021-03-04] MEDS ORDERED: PANTOPRAZOLE SOD 40 MG TABEC PO SCH (09:00)
[2021-03-04] MEDS ORDERED: COLESTIPOL HCL 1 G TAB PO SCH (09:00)
[2021-03-04] MEDS ORDERED: GUAIFENESIN 600 MG TAB PO SCH (09:00)
[2021-03-04] MEDS: DICYCLOMINE HCL 10 MG CAP PO SCH (09:00)
[2021-03-04] MEDS ORDERED: LORATADINE 10 MG TAB PO SCH (09:00)
[2021-03-04 09:03] VITALS: BP 120/79
== END 2021-03-04 11:49 | disposition home or self-care (01) ==
LOC: OR 06:36 → PACU V 10:58 → MED/SURG 12:00
PROVIDERS: ADMIT Neurological Surgery; ATTEND Neurological Surgery
DX: M50.120 Mid-cervical disc disorder, unspecified level (principal); Z01.818 Encounter for other preprocedural examination; I10 Essential (primary) hypertension; E78.5 Hyperlipidemia, unspecified
CPT/HCPCS: 20931; 22551; 22552; 22845; 36415; 71046; 72040; 77003; 80048; 81025; 85025; 85610; 85730; 86850; 86900; 88304; C1763; G0378 ×2; J0690 ×2; J1100; J1170 ×2; J1885; J2001; J2405 ×2; J2704; J3010; J3370; J3490; J7050; J7121

== ENCOUNTER → 2021-03-31 | Outpatient (CLI) | payer OTHER ==
[~2021-03-31] MED LIST changes: +HYDROCODON-ACE1 EA12 PO; +TRELEGY ELLIPT1 EACH INH
== END ==
LOC: RAD 12:57
PROVIDERS: ATTEND Neurological Surgery
DX: M50.20 Other cervical disc displacement, unspecified cervical region (principal); M43.22 Fusion of spine, cervical region
CPT/HCPCS: 72050

== ENCOUNTER 2023-10-16 08:34 | Emergency (ER) | payer OTHER ==
[~2023-10-16] VITALS: Ht 160 cm; Wt 97.1 kg
[~2023-10-16 08:34] MED LIST changes: +LOSARTAN POTASS25 MG PO
[2023-10-16 08:45] VITALS: O2SAT 100
[2023-10-16] MEDS: CYCLOBENZAPRINE HCL 10 MG TAB PO ONE (09:18)
[2023-10-16] MEDS ORDERED: CYCLOBENZAPRINE HCL 10 MG TAB ONE ×2 (09:19→13:37)
[2023-10-16] MEDS ORDERED: KETOROLAC TROMETHAMINE 30 MG/ML VIAL ONE (09:19)
[2023-10-16] MEDS: KETOROLAC TROMETHAMINE 60 MG/2 ML VIAL IM ONE (09:20)
[2023-10-16] MEDS ORDERED: KETOROLAC TROMETHAMINE 60 MG/2 ML VIAL ONE ×2 (09:23→13:37)
[2023-10-16] MEDS ORDERED: CYCLOBENZAPRINE10 MG PO (13:47)
== END 2023-10-16 14:19 | disposition home or self-care (01) ==
LOC: ER 09:10
DX: M54.6 Pain in thoracic spine (principal); M54.50 Low back pain, unspecified; M79.18 Myalgia, other site; I10 Essential (primary) hypertension; K21.9 Gastro-esophageal reflux disease without esophagitis; M43.22 Fusion of spine, cervical region; Z87.19 Personal history of other diseases of the digestive system
CPT/HCPCS: 72141; 72146; 99283; J1885

== ENCOUNTER 2024-10-14 15:15 | Emergency (ER) | payer SELFPAY ==
[~2024-10-14] VITALS: Ht 160 cm; Wt 80.7 kg
[~2024-10-14 15:15] MED LIST changes: +CYCLOBENZAPRINE10 MG PO; +DICYCLOMINE HCL20 MG PO; +ONDANSETRON ODT4 MG PO
[2024-10-14 16:24] LABS: BASOPHILS # (AUTO) 0.1 (0.0-0.1); EOSINOPHILS # (AUTO) 0.2 (0.0-0.4); HEMATOCRIT 48.4 % (34.2-44.1); HEMOGLOBIN 17.7 g/dL (12.0-16.0); LYMPHOCYTES # (AUTO) 3.1 (1.0-3.2); LYMPHOCYTES % 36.4 % (18.0-39.1); MEAN CORPUSCULAR HEMOGLOBIN 32.4 pg (28-32); MEAN CORPUSCULAR HGB CONC 36.6 g/dL (31-35); MEAN CORPUSCULAR VOLUME 88.6 fL (81-99); MONOCYTES # (AUTO) 0.5 (0.2-0.8); MONOCYTES % 6.4 % (4.4-11.3); NEUTROPHILS # (AUTO) 4.5 (2.1-6.9); NEUTROPHILS % 53.7 % (38.7-80.0); PLATELET COUNT 313 x10e3/uL (140-360); RED BLOOD COUNT 5.46 x10e6/uL (3.6-5.1); RED CELL DISTRIBUTION WIDTH 12.5 % (11.7-14.4); WHITE BLOOD COUNT 8.39 x10e3/uL (4.8-10.8)
[2024-10-14] MEDS: ONDANSETRON HCL INJ 2MG/ML 2ML 2 MG/ML VIAL IV STA (16:45)
[2024-10-14] MEDS: SODIUM CHLORIDE 0.9% 1000ML 1,000 ML IV ONE (16:46)
[2024-10-14 16:47] LABS: ALBUMIN 3.7 g/dL (3.5-5.0); ALBUMIN/GLOBULIN RATIO 0.9 (0.8-2.0); ANION GAP 18.9 mmol/L (8-16); BILIRUBIN,TOTAL 0.3 mg/dL (0.2-1.2); CALCIUM 8.9 mg/dL (8.4-10.2); CREATININE, SERUM 0.72 mg/dL (0.57-1.11); POTASSIUM 3.9 mmol/L (3.5-5.1); TOTAL PROTEIN 7.6 g/dL (6.5-8.1)
[2024-10-14 16:53] LABS: CLARITY,URINE CLEAR (CLEAR); COLOR,URINE YELLOW (YELLOW); GLUCOSE, URINE NEGATIVE (NEGATIVE); KETONES,URINE NEGATIVE (NEGATIVE); LEUKOCYTE ESTERASE ,URINE NEGATIVE (NEGATIVE); PH,URINE 6.5 (5 - 7); PROTEIN,URINE DIPSTICK NEGATIVE (NEGATIVE)
[2024-10-14 16:54] LABS: BILIRUBIN,URINE NEGATIVE (NEGATIVE); URINE UROBILINOGEN 0.2 mg/dL (0.2 - 1)
[2024-10-14 17:04] LABS: BACTERIA,URINE MANY /HPF; EPITHELIAL CELLS,URINE FEW /LPF; WBC,URINE (MAN) 0-5 /HPF (0-5)
[2024-10-14 17:14] LABS: NITRITE,URINE NEGATIVE (NEGATIVE)
[2024-10-14] MEDS: SODIUM CHLORIDE 0.9% 1000ML 2,000 ML IV STA (18:23)
[2024-10-14] MEDS ORDERED: ONDANSETRON ODT4 MG PO (19:09)
[2024-10-14] MEDS ORDERED: PROTONIX40 MG PO (19:09)
[2024-10-14] MEDS ORDERED: PROTONIX20 MG PO (19:32)
[2024-10-14 19:35] VITALS: PULSE 94; RESP 16; TEMP 98.9; O2SAT 98
[2024-10-14] MEDS ORDERED: IOPAMIDOL 370 MG/ML 100 ML INFUS..BTL INJ ONE (21:36)
== END 2024-10-14 19:41 | disposition home or self-care (01) ==
LOC: ER 17:31
DX: R10.9 Unspecified abdominal pain (principal); F10.129 Alcohol abuse with intoxication, unspecified; R11.2 Nausea with vomiting, unspecified; I10 Essential (primary) hypertension; K21.9 Gastro-esophageal reflux disease without esophagitis; Z87.19 Personal history of other diseases of the digestive system; Z87.442 Personal history of urinary calculi; F17.210 Nicotine dependence, cigarettes, uncomplicated
CPT/HCPCS: 36415; 73701; 74177; 80053; 80320; 81001; 83690; 84484; 85025; 93005; 99284; J2405; J2470; J7030; Q9967